=== PATIENT | female | born 1975 | race Caucasian/White ===

== ENCOUNTER 2018-05-03 11:45 | Inpatient (IN) ==
[2018-05-03] MEDS ORDERED: 0.9 % Sodium Chloride 1,000 ML IVC ONE (12:17)
[2018-05-03] MEDS ORDERED: Pantoprazole 40 MG VIAL IVP ONE (12:37)
[2018-05-03] MEDS ORDERED: Ketorolac 15 MG/ML VIAL IVP ONE (12:37)
[2018-05-03] MEDS ORDERED: *HR* LORazepam 2 MG/ML VIAL IVP ONE (12:37)
--- NOTE | 2018-05-03 12:51 | Emergency Department Note ---
Disposition Clinical Impression: Community acquired pneumonia Qualifiers: Laterality: unspecified laterality Qualified Code(s): J18.9 - Pneumonia, unspecified organism Diaphragmatic hernia Qualifiers: Obstruction and gangrene presence: without obstruction or gangrene Qualified Code(s): K44.9 - Diaphragmatic hernia without obstruction or gangrene Disposition: Admitted As Inpatient Condition: Fair Referrals: NONE,PCP [Non-Partnered Physician] - Time of Disposition: 17:00 Chest Pain HPI - General Chief Complaint: ED Chest Pain Stated Complaint: chest pain Time Seen by Provider: 05/03/18 11:54 Source: patient Limitations: no limitations Vital Signs Reviewed: Yes - History of Present Illness HPI Narrative: 43-year-old female with history of COPD and GERD here for abdominal pain, chest pain, and shortness of breath. Approximately 3 days ago she began having 8/10 pain in her bilateral lower abdomen and her epigastrium that is sharp and constant in nature. Yesterday the pain migrated to her chest and she tells me it has been constant, sharp, and severe 10/10. She denies radiation of the abdominal or chest pain. She took an ibuprofen for her pain yesterday which did not help significantly but has not tried any other interventions. She denies any nausea, vomiting, or diarrhea. Severity scale (1-10): 8 - Related Data Home Medications Medication Instructions Recorded Confirmed No Known Home Drugs 10/30/16 10/30/16 Allergies Allergy/AdvReac Type Severity Reaction Status Date / Time No Known Allergies Allergy Verified 05/03/18 15:46 Constitutional: Denies: fever, chills, weakness Cardiovascular: Reports: chest pain, dyspnea on exertion, orthopnea. Denies: palpitations, edema, syncope Respiratory: Reports: cough, sputum production (mild cough with sputum production) Gastrointestinal: Reports: abdominal pain, constipation. Denies: nausea, vomiting, diarrhea, hematemesis, melena, hematochezia Genitourinary: Denies: urgency, dysuria, frequency Musculoskeletal: Denies: back pain, neck pain Integumentary: Denies: rash Neurological: Denies: headache, weakness, numbness, paresthesias Endocrine: Denies: heat or cold intolerance, polydipsia, polyuria Hematological/Lymphatic: Denies: easy bleeding, easy bruising Allergic/Immunologic: Denies: facial swelling, urticaria Chest Pain PMH - Past Medical History Medical history: Reports: arthritis Surgical history: Reports: , cholecystectomy Psychiatric history: Reports: anxiety, depression - Social History Smoking Status: Current every day smoker Alcohol use: Reports: none Drug use: Reports: none Physical Exam - General Limitations: no limitations General appearance: alert, in no apparent distress - Head Head exam: atraumatic, normocephalic - ENT ENT exam: mucous membranes moist - Chest Chest inspection: Absent: tenderness - Respiratory Respiratory exam: Absent: respiratory distress, stridor, accessory muscle use - Expanded Respiratory Exam Location: wheezes: Left, Right, Upper, Lower, decreased breath sounds: Left, Right - Cardiovascular Cardiovascular exam: Present: normal rhythm, tachycardia (Will last carotid is a ) - Abdominal Exam Abdominal exam: Present: soft, guarding, hypoactive bowel sounds (w) Abdominal tenderness: Present: RUQ, RLQ, LUQ, LLQ, epigastrium - Extremities Exam Extremities exam: Present: normal inspection - Back Exam Back exam: Present: normal inspection, full ROM. Absent: tenderness - Neurological Exam Neurological exam: Present: alert, oriented X3 - Psychiatric Psychiatric exam: Present: normal affect, normal mood - Skin Skin exam: Present: warm, dry, intact Course Course Narrative: Patient seen and evaluated at bedside. She is in moderate distress from her abdominal pain and chest pain but stable. Heart rate is elevated, patient has decreased intake of fluids and solids for the past 2-3 days. - Reevaluation(s) Reevaluation #1: Ativan and Toradol administered however IV malfunctioned. Nursing unable to obtain IV access after 5 additional attempts. We will get midline IV access . Discussed this with the patient and she is okay with that so we can administer fluids for her tachycardia and dehydration as well as the Protonix Vital Signs Temperature 98.0 F 05/03/18 11:46 Pulse Rate 123 05/03/18 11:46 Respiratory Rate 18 05/03/18 11:46 Blood Pressure 126/90 05/03/18 11:46 O2 Sat by Pulse Oximetry 94 05/03/18 11:46 Temperature 97.4 F L 05/03/18 17:34 Pulse Rate 99 05/03/18 17:34 Respiratory Rate 18 05/03/18 17:34 Blood Pressure 106/71 05/03/18 17:34 O2 Sat by Pulse Oximetry 98 05/03/18 17:34 Oxygen Delivery Oxygen Delivery Nasal Cannula Chest Pain - [facility] Narrative Medical decision making narrative: By history patient is dehydrated and tachycardic here in the ED. We will give her a bolus of fluids and also some Protonix. We will give Ativan as patient appears anxious, and Toradol for her pain for starters. Given her chest pain we will initiate cardiac workup. Will also obtain CT abdomen to check for possible perforation, diverticulitis, bowel obstruction, pancreatitis . CT scan showed right basilar lung consolidation and bilateral centrilobular ground glass nodules bilaterally. Patient denies recent hospitalizations or recent pneumonia and we started her on treatment for community acquired pneumonia with Levaquin. Furthermore, CT scan showed colonic distention and a large amount of fat along with large bowel in the diaphragmatic defect. I spoke with Dr. Melendez surgeon who said he will see the patient as a design sales consultant. . Hospitalist called me back to let me know that surgeon reviewed the CT scan and recommended the patient be transferred to [facility] for further management - Lab Data Lab results reviewed: Yes I reviewed the patient's lab results. Result diagrams: 05/03/18 12:46 05/03/18 12:46 Lab Results 05/03/18 05/03/18 05/03/18 Range/Units 12:46 12:46 12:46 WBC 13.6 H (4.3-11.1) K/mcL RBC 5.27 H (3.82-4.97) M/mcL Hgb 13.3 (11.5-15.4) g/dL Hct 41.8 (35.3-44.9) % MCV 79.3 L (83.0-100.0) fL MCH 25.2 L (28.0-33.3) pg MCHC 31.8 (31.6-35.5) g/dL RDW 16.5 H (11.5-14.5) % Plt Count 280 (140-400) K/mcL MPV 10.9 (9.4-12.4) fL Immature Gran % 0.3 (0-4) % Seg Neutrophils % 76.8 % Lymphocytes % 14.0 % Monocytes % 8.7 % Eosinophils % 0.0 % Basophils % 0.2 % Neutrophils # 10.5 H (1.6-8.9) K/mcL Lymphocytes # 1.9 (0.6-4.6) K/mcL Monocytes # 1.2 (0.0-1.3) K/mcL Eosinophils # 0.0 (0.0-0.6) K/mcL Basophils # 0.0 (0.0-0.2) K/mcL PT 11.8 (9.4-12.1) Seconds INR 1.1 APTT 32.6 (26.0-36.0) Seconds Sodium 135 L (136-145) mEq/L Potassium 4.1 (3.5-5.1) mEq/L Chloride 100 (98-107) mEq/L Carbon Dioxide 29 (23-29) mEq/L BUN 11 (6-20) mg/dL Creatinine 0.44 L (0.60-1.20) mg/dL Est GFR ( Amer) > 60 (> 60) Est GFR (Non-Af Amer) > 60 (> 60) BUN/Creatinine Ratio 25 (6-26) Glucose 129 H (70-105) mg/dL Calculated Osmolality 281 (280-300) Lactic Acid (0.5-2.2) mmol/L Calcium 9.4 (8.6-10.3) mg/dL Total Bilirubin 0.6 (0.3-1.0) mg/dL Direct Bilirubin 0.1 (0.0-0.2) mg/dL Indirect Bilirubin 0.5 (0.0-1.2) mg/dL AST 7 L (13-39) Units/L ALT 4 L (7-52) Units/L Alkaline Phosphatase 63 (34-104) Units/L Troponin I < 0.03 (< 0.04) ng/mL Serum Total Protein 7.1 (6.4-8.9) g/dL Albumin 3.7 (3.5-5.7) g/dL Globulin 3.4 (2.4-3.5) g/dL Albumin/Globulin Ratio 1.1 (1.1-2.2) Lipase 6 L (11-82) Units/L 05/03/18 Range/Units 16:17 WBC (4.3-11.1) K/mcL RBC (3.82-4.97) M/mcL Hgb (11.5-15.4) g/dL Hct (35.3-44.9) % MCV (83.0-100.0) fL MCH (28.0-33.3) pg MCHC (31.6-35.5) g/dL RDW (11.5-14.5) % Plt Count (140-400) K/mcL MPV (9.4-12.4) fL Immature Gran % (0-4) % Seg Neutrophils % % Lymphocytes % % Monocytes % % Eosinophils % % Basophils % % Neutrophils # (1.6-8.9) K/mcL Lymphocytes # (0.6-4.6) K/mcL Monocytes # (0.0-1.3) K/mcL Eosinophils # (0.0-0.6) K/mcL Basophils # (0.0-0.2) K/mcL PT (9.4-12.1) Seconds INR APTT (26.0-36.0) Seconds Sodium (136-145) mEq/L Potassium (3.5-5.1) mEq/L Chloride (98-107) mEq/L Carbon Dioxide (23-29) mEq/L BUN (6-20) mg/dL Creatinine (0.60-1.20) mg/dL Est GFR ( Amer) (> 60) Est GFR (Non-Af Amer) (> 60) BUN/Creatinine Ratio (6-26) Glucose (70-105) mg/dL Calculated Osmolality (280-300) Lactic Acid 0.7 (0.5-2.2) mmol/L Calcium (8.6-10.3) mg/dL Total Bilirubin (0.3-1.0) mg/dL Direct Bilirubin (0.0-0.2) mg/dL Indirect Bilirubin (0.0-1.2) mg/dL AST (13-39) Units/L ALT (7-52) Units/L Alkaline Phosphatase (34-104) Units/L Troponin I (< 0.04) ng/mL Serum Total Protein (6.4-8.9) g/dL Albumin (3.5-5.7) g/dL Globulin (2.4-3.5) g/dL Albumin/Globulin Ratio (1.1-2.2) Lipase (11-82) Units/L - EKG Data EKG attestation: Yes I reviewed and interpreted this EKG. EKG results narrative: EKG reviewed: Sinus tachycardia. Rate = 120 bpm, OR interval 120 ms, QRS duration 75 ms, QT 301 ms, QTC 372, normal axes. No ST elevation or depression , no T-wave abnormalities Heart Score - Score History: Moderately Suspicious EKG: Normal Age: Less than 45 Risk Factors: 1-2 risk factors Troponin: Less than normal limit HEART Score Total: 2 Attestation Statement - Attestation Attestation: Patient was seen with resident physician. I reviewed the history, physical, assessment and plan, and agree with the findings. I also personally evaluated this patient and had [id number] time with this patient. 43-year-old female presents emergency Department with 3-4 day history of abdominal pain started in the lower and mid epigastric area as a dull ache area and now she says it comes up into her chest and she is having some chest pain. She said the pain is been continuous for about 3 days. It does not wax or wane. Worse when she lies back she says she feels very burning uncomfortable sensation is associated with shortness of breath as well. She has reflux but she does not take anything for it. She is a smoker but denies any cardiac history. Denies fevers chills. She has had nausea without vomiting. No diarrhea. Review of systems as above remained reviewed negative. Physical exam vital signs patient's initially tachycardic. Blood pressure stable. ENT is unremarkable. Heart regular rhythm and rate. Chest wall stable. Lungs clear without wheezing or rhonchi. Abdomen soft nontender. Extremities unremarkable. Neurologically intact. Skin no rashes. Psych anxious. Patient has had 3 days of continuous chest pain. Her EKG does not show any acute ischemic changes initial troponin is negative. Based on this and her lack of cardiac history, I think this is likely reflux that is causing esophageal irritation. She was treated symptomatically here including for Ativan because she is very anxious on arrival. Symptoms were improved. Other lab tests are largely unremarkable CT scan of the abdomen and pelvis was also obtained to rule out substantial abnormalities. X-ray revealed pneumonia. CT scan confirmed this and also was suggestive of a hiatal hernia with possible partial bowel obstruction. With these findings the patient was started on IV antibiotics and IV fluids. A midline IV was obtained. Patient did meet sepsis criteria however not septic shock criteria for severe sepsis criteria. She was feeling better. We did contact both the hospitalist service to arrange for admission and surgery to get them a formal consultation for the patient. Hemodynamically she remained stable while in the ED heart rate was improving. Agree with resident physician assessment and plan.
[2018-05-03 12:56] LABS: Basophils % 0.2 %; Hematocrit 41.8 % (35.3-44.9); Hemoglobin 13.3 g/dL (11.5-15.4); Immature Granulocytes % 0.3 % (0-4); Lymphocytes # 1.9 K/mcL (0.6-4.6); Mean Corpuscular HGB Conc 31.8 g/dL (31.6-35.5); Mean Corpuscular Hemoglobin 25.2 pg (28.0-33.3); Mean Corpuscular Volume 79.3 fL (83.0-100.0); Mean Platelet Volume 10.9 fL (9.4-12.4); Monocytes # 1.2 K/mcL (0.0-1.3); Monocytes % 8.7 %; Neutrophils # 10.5 K/mcL (1.6-8.9); Platelet Count 280 K/mcL (140-400); Red Blood Count 5.27 M/mcL (3.82-4.97); Red Cell Distribution Width 16.5 % (11.5-14.5); Segmented Neutrophils % 76.8 %
[2018-05-03 13:09] LABS: INR 1.1; Prothrombin Time 11.8 Seconds (9.4-12.1)
[2018-05-03 13:12] LABS: Activated Partial Thrombo Time 32.6 Seconds (26.0-36.0)
[2018-05-03 13:17] LABS: BUN/Creatinine Ratio 25 (6-26); Blood Urea Nitrogen 11 mg/dL (6-20); Calcium 9.4 mg/dL (8.6-10.3); Carbon Dioxide 29 mEq/L (23-29); Chloride 100 mEq/L (98-107); Glucose 129 mg/dL (70-105); Osmolality,Calculated 281 (280-300); Potassium 4.1 mEq/L (3.5-5.1); Sodium 135 mEq/L (136-145); Troponin I < 0.03 ng/mL (< 0.04); eGFR For African Americans > 60 (> 60); eGFR For Non-African Americans > 60 (> 60)
[2018-05-03 13:39] LABS: Alanine Aminotransferase 4 Units/L (7-52); Albumin 3.7 g/dL (3.5-5.7); Albumin/Globulin Ratio 1.1 (1.1-2.2); Alkaline Phosphatase 63 Units/L (34-104); Aspartate Amino Transferase 7 Units/L (13-39); Bilirubin,Direct 0.1 mg/dL (0.0-0.2); Bilirubin,Indirect 0.5 mg/dL (0.0-1.2); Bilirubin,Total 0.6 mg/dL (0.3-1.0); Globulin 3.4 g/dL (2.4-3.5); Lipase 6 Units/L (11-82); Total Protein 7.1 g/dL (6.4-8.9)
[2018-05-03] MEDS ORDERED: Levofloxacin 500 MG/100 ML 500 MG/100 ML BAG IVPB ONE (15:23)
[2018-05-03] MEDS ORDERED: *HR* Promethazine 25 MG/ML VIAL IVP PRN (16:02)
[2018-05-03] MEDS ORDERED: OXYCODONE Oral CONC 10 MG/0.5 ML ORAL.SYG SL PRN ×2 (16:02)
[2018-05-03] MEDS ORDERED: Naloxone 0.4 MG/ML INJ IVP PRN (16:02)
[2018-05-03] MEDS ORDERED: Ondansetron 4 MG/2 ML VIAL IVP PRN (16:02)
[2018-05-03] MEDS ORDERED: 0.9 % Sodium Chloride 1,000 ML IVC SCH (16:15)
--- NOTE | 2018-05-03 17:13 | General Surgery Consult Note ---
<Aureliano Schultz R - Last Filed: 05/03/18 17:05> Date of Encounter: 05/03/18 Time of Encounter: 17:05 Assessment and Plan (1) Abdominal pain Current Visit: Yes Status: Acute Diffuse tenderness on exam. Afebrile. Leukocytosis (13.6) CT (no oral contrast): large Morgagni diaphragmatic hernia, containing a large amount of fat and a segment of colon - unchanged scattered fluid and stranding within herniated fat. Distension of colon proximal to the diaphragmatic defect, possibly indicating a low grade partial obstruction. There is no significant small bowel dilation. Chronic right pleural effusion. Right basilar consolidation may represent atelectasis or pneumonia - hernia and presence of transverse colon also noted on CT from 2013 PLAN: NPO except ice chips Dulcolax suppository Supportive treatment - Pain and nausea control Qualifiers: Abdominal location: generalized Qualified Code(s): R10.84 - Generalized abdominal pain (2) Morgagni hernia Current Visit: Yes Status: Acute History of Present Illness Consult date: 05/03/18 Reason for consult: abdominal pain Requesting physician: Des Levin History of present illness: 43 year old female with PMH of emphysema presented to [facility] with lower abdominal pain, chest pain, and dyspnea. She states that her symptoms began 4 days ago when she started having bilateral band-like, constant, sharp lower abdominal pain. Today she began having chest pain, cough, and shortness of breath, that brought her into the emergency department. At times her abdominal pain is severe (10/10). She has not eaten or drank much for the past 3-4 days. Associated symptoms include worsening constipation and bloating. Normally she has a BM every 3-4 days, however she thinks it has been at least 5-6 days since her last bowel movement. She does feel like her abdomen is a little more distended than usual. Denies fevers, chills, nausea, vomiting, dysuria, or difficulty urinating. She does not remember passing any gas. PSH: Morgagni hernia repair at [facility] (2013), x4, and open cholecystectomy Past Med Surg Social Fam HX - Past Medical History Medical history: arthritis, COPD Psychiatric history: anxiety, depression - Past Surgical History Surgical History: , cholecystectomy Additional surgical history: Hernia repair (Morgagni) - Social History Smoking Status: Current every day smoker Smokeless Tobacco Status: No Alcohol use: none Drug use: none - Family History Mother Family Member Ethnicity: Non- Living Status: Hx Family Cardiac Disorders: No Hx Family Respiratory Disorders: No Hx Family Cancer: Yes (Pancreatic) Hx Family GI Disorders: No Hx Family Endocrine Disorder: No Hx Family Neuromuscular Disorders: No Hx Family Neurologic Disorders: No Hx Family HEENT Disorders: No Hx Family Autoimmune Disorders: No Father Family Member Ethnicity: Non- Living Status: Hx Family Cardiac Disorders: Yes (Heart attack, CABG) Hx Family Respiratory Disorders: Yes (Pneumonia) Hx Family Cancer: Yes (Colon) Hx Family GI Disorders: No Hx Family Endocrine Disorder: No Hx Family Neuromuscular Disorders: No Hx Family Neurologic Disorders: No Hx Family HEENT Disorders: No Hx Family Autoimmune Disorders: No Medications and Allergies No Known Home Drugs 10/30/16 [History] 3 Allergy/AdvReac Type Severity Reaction Status Date / Time No Known Allergies Allergy Verified 05/03/18 15:46 Review of Systems All systems PM: reviewed and no additional remarkable complaints except as stated All systems PM: The remainder of the systems were reviewed and are negative General Surgery Exam Initial Vital Signs Temp Pulse Resp BP Pulse Ox 98.0 F 123 18 126/90 94 05/03/18 11:46 05/03/18 11:46 05/03/18 11:46 05/03/18 11:46 05/03/18 11:46 - General physical appearance well developed, well nourished, moderate pain - Respiratory normal expansion, normal respiratory effort - Cardiovascular Cardiovascular exam: Present: RRR, no murmurs/rubs/gallops - Abdomen Abdomen general surgery: Present: bowel sounds present (hypoactive), soft, distended, tender, surgical scars (RUQ and midline inferior to umbilicus). Absent: guarding, rebound, rigid Abdominal Tenderness: Present: diffusely - Integumentary Integumentary general surgery: Present: warm and dry, no abnormal pigmentation - Neurologic Present: CN 2-12 grossly intact, normal coordination - Psychiatric Psychiatric general surgery: Present: A&Ox3, appropriate, speech is normal, memory intact Exam Initial Vital Signs Temp Pulse Resp BP Pulse Ox 98.0 F 123 18 126/90 94 05/03/18 11:46 05/03/18 11:46 05/03/18 11:46 05/03/18 11:46 05/03/18 11:46 Results - Labs 05/03/18 12:46 05/03/18 12:46 Abnormal lab results WBC 13.6 K/mcL (4.3-11.1) H 05/03/18 12:46 RBC 5.27 M/mcL (3.82-4.97) H 05/03/18 12:46 MCV 79.3 fL (83.0-100.0) L 05/03/18 12:46 MCH 25.2 pg (28.0-33.3) L 05/03/18 12:46 RDW 16.5 % (11.5-14.5) H 05/03/18 12:46 Neutrophils # 10.5 K/mcL (1.6-8.9) H 05/03/18 12:46 Sodium 135 mEq/L (136-145) L 05/03/18 12:46 Creatinine 0.44 mg/dL (0.60-1.20) L 05/03/18 12:46 Glucose 129 mg/dL (70-105) H 05/03/18 12:46 AST 7 Units/L (13-39) L 05/03/18 12:46 ALT 4 Units/L (7-52) L 05/03/18 12:46 Lipase 6 Units/L (11-82) L 05/03/18 12:46 All other labs normal. Consult Discharge Plan - Plan Referrals: NONE,PCP [Primary Care Provider] - <Av Melendez - Last Filed: 05/03/18 18:03> Date of Encounter: 05/03/18 Review of Systems All systems PM: The remainder of the systems were reviewed and are negative General Surgery Exam Initial Vital Signs Temp Pulse Resp BP Pulse Ox 98.0 F 123 18 126/90 94 05/03/18 11:46 05/03/18 11:46 05/03/18 11:46 05/03/18 11:46 05/03/18 11:46 Exam Initial Vital Signs Temp Pulse Resp BP Pulse Ox 98.0 F 123 18 126/90 94 05/03/18 11:46 05/03/18 11:46 05/03/18 11:46 05/03/18 11:46 05/03/18 11:46 Results - Labs 05/03/18 12:46 05/03/18 12:46 Abnormal lab results WBC 13.6 K/mcL (4.3-11.1) H 05/03/18 12:46 RBC 5.27 M/mcL (3.82-4.97) H 05/03/18 12:46 MCV 79.3 fL (83.0-100.0) L 05/03/18 12:46 MCH 25.2 pg (28.0-33.3) L 05/03/18 12:46 RDW 16.5 % (11.5-14.5) H 05/03/18 12:46 Neutrophils # 10.5 K/mcL (1.6-8.9) H 05/03/18 12:46 Sodium 135 mEq/L (136-145) L 05/03/18 12:46 Creatinine 0.44 mg/dL (0.60-1.20) L 05/03/18 12:46 Glucose 129 mg/dL (70-105) H 05/03/18 12:46 AST 7 Units/L (13-39) L 05/03/18 12:46 ALT 4 Units/L (7-52) L 05/03/18 12:46 Lipase 6 Units/L (11-82) L 05/03/18 12:46 All other labs normal. - Attending Attestation I examined this patient and my medical decision-making was reviewed with the Resident Physician. I agree with the documented findings, disposition and treatment plan as described except to the extent set forth below. Review the assessment and evaluation with the resident as mentioned above. The patient has had a previous history of similar symptoms back in 2012 and was evaluated here [facility] with a CT scan showing a large portion of her transverse colon at the level of the hepatic flexure and a diaphragmatic hernia defect (Morgangi hernia defect). She had not had any flatus or bowel movements for several days and was transferred to [facility] for a hernia repair. The patient states over the past 4 days she has had similar type of symptoms with lower abdominal pain symptoms and no bowel movements. She does admit that she normally has a bowel movement once every 2-3 days but is been about 4-5 days and her pain is been present for that amount of time. She denies any nausea or vomiting symptoms and does admit to some abdominal distention. On examination she is tender to 10 minute was some mild bowel sounds. The initial radiology read was that she had mild dilation of the colon proximal to the hernia defect but I think that this is pretty moderate distention with definite collapse of the bowel distally. The neck of hernia defect is slightly smaller than it was on previous CT scan 2013. I am concerned that her overall symptoms are related to this hernia defect and explained to the patient that if under conservative measures her symptoms do not resolve then she will need to be referred to [facility] for evaluation and possible repair since we do not perform this type of extensive congenital hiatal hernia repair at this institution. I have contacted the hospitalist to make them aware of my concerns as well.
[2018-05-03 17:35] VITALS: BP 106/71
--- NOTE | 2018-05-03 17:48 | Internal Med History&Physical ---
Date of Encounter: 05/03/18 Time of Encounter: 16:00 Internal Medicine - H&P: HPI Chief complaint: Abdominal pain, Nausea, Cough with expectoration Admitted From: Emergency Dept Plans for Post Hospital Care: Home History of present illness: Ms. Sanchez is a 43 year old female with known PMH of COPD, Chronic tobacco dependence, chronic diaphragmatic hernia pt with s/p C section x 4, cholecystectomy pt presented to ER with 4 days h/o lower abdominal pain asosicated with nausea. She also c/o loss of appetite and not eating / drinking well from last 4-5 days. She does have constipation. Denied passing gas, BM. She also c/o KELLEY and SOB. She does have cough with greenish expectoration. Her CXR showed RLL Pneumonia. Her CT of abd showed large morgagni diaphragmatic hernia, containing large amount of fat and a segment of colon. There is a distention of colon proximal to the diaphragmatic defect, indicating a low grade partial obstruction Past Med Surg Social Fam HX - Past Medical History Medical history: arthritis, COPD Psychiatric history: anxiety, depression - Past Surgical History Surgical History: , cholecystectomy Additional surgical history: Hernia repair (Morgagni) - Social History Smoking Status: Current every day smoker Smokeless Tobacco Status: No Alcohol use: none Drug use: none - Family History Mother Family Member Ethnicity: Non- Living Status: Hx Family Cardiac Disorders: No Hx Family Respiratory Disorders: No Hx Family Cancer: Yes (Pancreatic) Hx Family GI Disorders: No Hx Family Endocrine Disorder: No Hx Family Neuromuscular Disorders: No Hx Family Neurologic Disorders: No Hx Family HEENT Disorders: No Hx Family Autoimmune Disorders: No Father Family Member Ethnicity: Non- Living Status: Hx Family Cardiac Disorders: Yes (Heart attack, CABG) Hx Family Respiratory Disorders: Yes (Pneumonia) Hx Family Cancer: Yes (Colon) Hx Family GI Disorders: No Hx Family Endocrine Disorder: No Hx Family Neuromuscular Disorders: No Hx Family Neurologic Disorders: No Hx Family HEENT Disorders: No Hx Family Autoimmune Disorders: No Internal Medicine - H&P: Meds No Known Home Drugs 10/30/16 [History] 3 Allergy/AdvReac Type Severity Reaction Status Date / Time No Known Allergies Allergy Verified 05/03/18 15:46 All Systems PM: A 10-system review of systems was performed and is negative for pertinent findings except as documented above in the HPI. Review of systems: All systems reviewed everything is benign except the systems and symptoms I mentioned in HPI - Constitutional Vitals: Temp Pulse Resp BP Pulse Ox 97.4 F L 99 18 106/71 98 05/03/18 17:34 05/03/18 17:34 05/03/18 17:34 05/03/18 17:34 05/03/18 17:34 General appearance: Present: cooperative, mild distress, A&O X 3, answers questions appropriately - Head Head exam: Present: atraumatic, normal inspection - Neck Neck exam general surgery: Present: supple - Respiratory Respiratory exam: Present: decreased breath sounds, wheezes (mild). Absent: rales, respiratory distress, rhonchi - Cardiovascular Cardiovascular exam: Present: RRR, +S1, +S2. Absent: tachycardia - GI/Abdominal GI/Abdominal exam: Present: distended, hypoactive bowel sounds, soft, tenderness (lower abdomen). Absent: guarding, rebound, rigid - Extremities Exam Extremities exam: Absent: calf tenderness, pedal edema, tenderness - Back Exam Back exam: Absent: CVA tenderness (L), CVA tenderness (R) - Neurological Exam Neurological exam: Present: alert, oriented X3 - Psychiatric Psychiatric exam: Present: anxious - Skin Skin exam: Absent: rash Internal Med - H&P Results - Labs CBC & Chem 7: 05/03/18 12:46 05/03/18 12:46 - Assessment and plan (1) Large bowel obstruction Current Visit: Yes Status: Acute Assessment and plan: Admit the pt into Tele Reviewed her CT of Abd showing large bowel obstruction with Morgagni hernia Surgery consulted NPO for now Dr. Alatorre reviewed the pt's CT of Abd suggested, he won't do Morgagni hernia repair here, so suggested to send her to [facility] where she had past surgery done. Will contact [facility] for transfer Mean while continue symptomatic and supportive care (2) Abdominal pain Current Visit: Yes Status: Acute Qualifiers: Abdominal location: generalized Qualified Code(s): R10.84 - Generalized abdominal pain (3) Morgagni hernia Current Visit: Yes Status: Acute (4) Acute exacerbation of chronic obstructive airways disease Current Visit: No Status: Acute Assessment and plan: Duoneb No need of systemic steroids O2 and empirical abx (5) Community acquired pneumonia Current Visit: No Status: Acute Assessment and plan: Reviewed CXR showed RLL PNA mostly bacterial check Sputum cx, Gram staining, Strep PNA, Legionella and Resp viral panel Qualifiers: Laterality: right Lung location: lower lobe of lung Qualified Code(s): J18.1 - Lobar pneumonia, unspecified organism (6) Tobacco abuse Current Visit: No Status: Acute Assessment and plan: counseled to quit smoking - Time Spent With Patient Total time spent is greater than 50% in coordination of care (as documented) at patient's floor/unit and/or counseling patient:
[2018-05-03] MEDS: Bisacodyl 10 MG RECTAL SUPPOSITORY RC SCH ×2 (18:19→20:25)
--- NOTE | 2018-05-03 18:27 | Discharge Summary ---
Date of Encounter: 05/03/18 Time of Encounter: 18:20 - Discharge Diagnosis (1) Large bowel obstruction Priority: Primary Status: Acute (2) Abdominal pain Priority: Primary Status: Acute Qualifiers: Abdominal location: generalized Qualified Code(s): R10.84 - Generalized abdominal pain (3) Morgagni hernia Priority: Secondary Status: Acute (4) Acute exacerbation of chronic obstructive airways disease Priority: Secondary Status: Acute (5) Community acquired pneumonia Priority: Secondary Status: Acute Qualifiers: Laterality: right Lung location: lower lobe of lung Qualified Code(s): J18.1 - Lobar pneumonia, unspecified organism (6) Tobacco abuse Priority: Secondary Status: Acute Hospital course: Ms. Sanchez is a 43 year old female with known PMH of COPD, Chronic tobacco dependence, chronic diaphragmatic hernia pt with s/p C section x 4, cholecystectomy pt presented to ER with 4 days h/o lower abdominal pain asosicated with nausea. She also c/o loss of appetite and not eating / drinking well from last 4-5 days. She does have constipation. Denied passing gas, BM. She also c/o KELLEY and SOB. She does have cough with greenish expectoration. Her CXR showed RLL Pneumonia. Her CT of abd showed large morgagni diaphragmatic hernia, containing large amount of fat and a segment of colon. There is a distention of colon proximal to the diaphragmatic defect, indicating a low grade partial obstruction Pt was evaluated by our surgeon Dr. Melendez who suggested to transfer the pt to [facility] for further care. Talked to [facility] transfer center and surgeon Dr. Pace who accepted the pt for further care. So will d/ c her to [facility] today. - Time Spent with Patient Total time spent providing and/or coordinating discharge services: - Discharge Medications Home Medications: No Known Home Drugs 10/30/16 [History] Allergies/Adverse Reactions: 3 Allergy/AdvReac Type Severity Reaction Status Date / Time No Known Allergies Allergy Verified 05/03/18 15:46 Date of admission: 05/03/18 16:58 Primary care physician: PCP NONE Consults: 05/03/18 17:03 Consult to Surgery [CONS] Routine Consulting Provider: [facility] Reason for Consult: partial bowell obstruction Time Notified: 16:00 Call Completed: Yes - Constitutional Vitals: Temp Pulse Resp BP Pulse Ox 97.4 F L 99 18 106/71 98 05/03/18 17:34 05/03/18 17:34 05/03/18 17:34 05/03/18 17:34 05/03/18 17:34 General appearance: Present: cooperative, mild distress, A&O X 3, answers questions appropriately - Patient Status Disposition: Transfer Other Condition: Good - Discharge Instructions Follow Up With: NONE,PCP [Primary Care Provider] -
[2018-05-03] MEDS ORDERED: Ipratropium/Albuterol Neb 3 ML IH SCH (20:00)
[2018-05-04] MEDS ORDERED: *HR* Enoxaparin 40 MG/0.4 ML SYRINGE SQ SCH (06:00)
[2018-05-04] MEDS ORDERED: Levofloxacin 750 MG/150 ML 750 MG/150 ML BAG IVPB SCH (09:00)
--- NOTE | 2018-05-04 09:57 | Electrocardiograph Report ---
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
== END 2018-05-03 22:20 | disposition other institution (70) | DRG 247 ==
LOC: EMEROO 11:45 → 3ANU 16:58
PROVIDERS: ADMIT Family Medicine; ATTEND Family Medicine

== ENCOUNTER 2020-07-30 04:44 | Observation (INO) ==
[2020-07-30] MEDS ORDERED: Ipratropium/Albuterol Neb 3 ML IH ONE (04:56)
[2020-07-30] MEDS ORDERED: methylPREDNISolone 125 MG/2 ML VIAL IVP ONE (04:56)
[2020-07-30 06:53] LABS: Basophils % 0.1 %; Hemoglobin 13.7 g/dL (11.5-15.4); Immature Granulocytes % 0.4 % (0-4); Lymphocytes # 1.3 K/mcL (0.6-4.6); Lymphocytes % 9.3 %; Mean Corpuscular HGB Conc 31.1 g/dL (31.6-35.5); Mean Corpuscular Hemoglobin 28.2 pg (28.0-33.3); Mean Corpuscular Volume 90.7 fL (83.0-100.0); Mean Platelet Volume 11.7 fL (9.4-12.4); Monocytes # 0.8 K/mcL (0.0-1.3); Monocytes % 5.9 %; Neutrophils # 11.7 K/mcL (1.6-8.9); Platelet Count 219 K/mcL (140-400); Red Blood Count 4.85 M/mcL (3.82-4.97); Red Cell Distribution Width 14.5 % (11.5-14.5); Segmented Neutrophils % 84.3 %; White Blood Count 13.8 K/mcL (4.3-11.1)
[2020-07-30 07:04] LABS: BUN/Creatinine Ratio 13 (6-26); Blood Urea Nitrogen 8 mg/dL (6-20); Calcium 8.6 mg/dL (8.6-10.3); Carbon Dioxide 31 mEq/L (23-29); Chloride 101 mEq/L (98-107); Glucose 155 mg/dL (70-105); Osmolality,Calculated 287 (280-300); Sodium 138 mEq/L (136-145); eGFR For African Americans > 60 (> 60); eGFR For Non-African Americans > 60 (> 60)
[2020-07-30 07:08] LABS: Troponin I 0.18 ng/mL (< 0.04)
[2020-07-30 07:08] LABS: Adenovirus Not Detected (Not Detect); Bordetella Pertussis Not Detected (Not Detect); Chlamydophila pneumoniae Not Detected (Not Detect); Coronavirus 229E Not Detected (Not Detect); Coronavirus HKU1 Not Detected (Not Detect); Coronavirus NL63 Not Detected (Not Detect); Coronavirus OC43 Not Detected (Not Detect); Human Metapneumovirus Not Detected (Not Detect); Human Rhinovirus/Enterovirus Not Detected (Not Detect); Influenza A Subtype 2009 H1 Not Detected (Not Detect); Influenza B Not Detected (Not Detect); Mycoplasma pneumoniae Not Detected (Not Detect); Parainfluenza Virus 1 Not Detected (Not Detect); Parainfluenza Virus 2 Not Detected (Not Detect); Parainfluenza Virus 3 Not Detected (Not Detect); Parainfluenza Virus 4 Not Detected (Not Detect); Respiratory Syncytial Virus Not Detected (Not Detect); SARS-CoV-2 Not Detected (Not Detect)
[2020-07-30] MEDS ORDERED: Aspirin 325 MG TABLET PO ONE (07:15)
[2020-07-30] MEDS ORDERED: Potassium Chloride Elixir 20 MEQ/15 ML UDC PO ONE (07:15)
[2020-07-30] MEDS ORDERED: Isovue-370 500 ML BOTTLE IVP ONE (07:20)
[2020-07-30] MEDS ORDERED: Azithromycin 500 MG in D5% in Water 250 ML IVPB ONE (09:03)
[2020-07-30] MEDS ORDERED: cefTRIAXone 1,000 MG in Water for inj. (sterile) 10 ML IVP ONE (09:22)
[2020-07-30] MEDS ORDERED: Naloxone 0.4 MG/ML INJ IVP PRN (10:19)
[2020-07-30] MEDS ORDERED: Albuterol 2.5 MG/3 ML NEBULIZER IH PRN (11:47)
[2020-07-30] MEDS ORDERED: *HR* Heparin 5,000 UNIT/ML VIAL IVP PRN ×2 (14:28)
[2020-07-30] MEDS ORDERED: *HR* Heparin 5,000 UNIT/ML VIAL IVP ONE (14:28)
[2020-07-30] MEDS ORDERED: Perflutren Lipid Microsphere 1.3 ML in 0.9 % Sodium Chloride 8.7 ML IVP PRN (14:29)
[2020-07-30] MEDS ORDERED: Heparin 25,000UNIT/250ML 1/2NS 25,000 UNIT/250 ML IV.SOLN IVC SCH (14:30)
[2020-07-30] MEDS: Ipratropium/Albuterol Neb 3 ML IH SCH ×4 (15:51→23:59)
[2020-07-31 03:34] LABS: Basophils % 0.1 %; Hematocrit 38.8 % (35.3-44.9); Hemoglobin 12.5 g/dL (11.5-15.4); Immature Granulocytes % 0.4 % (0-4); Lymphocytes # 1.4 K/mcL (0.6-4.6); Lymphocytes % 11.1 %; Mean Corpuscular HGB Conc 32.2 g/dL (31.6-35.5); Mean Corpuscular Hemoglobin 29.1 pg (28.0-33.3); Mean Corpuscular Volume 90.4 fL (83.0-100.0); Monocytes # 0.6 K/mcL (0.0-1.3); Monocytes % 5.2 %; Neutrophils # 10.2 K/mcL (1.6-8.9); Platelet Count 181 K/mcL (140-400); Red Blood Count 4.29 M/mcL (3.82-4.97); Red Cell Distribution Width 14.6 % (11.5-14.5); Segmented Neutrophils % 83.2 %; White Blood Count 12.2 K/mcL (4.3-11.1)
[2020-07-31] MEDS: Ipratropium/Albuterol Neb 3 ML IH SCH ×3 (03:36→11:19)
[2020-07-31 03:59] LABS: BUN/Creatinine Ratio 14 (6-26); Blood Urea Nitrogen 6 mg/dL (6-20); Calcium 8.6 mg/dL (8.6-10.3); Carbon Dioxide 30 mEq/L (23-29); Chloride 103 mEq/L (98-107); Chol/HDL Ratio 5.8 (0-4.9); Cholesterol 173 mg/dL (< 200); Glucose 122 mg/dL (70-105); HDL Cholesterol 30 mg/dL (40-59); LDL Cholesterol,Calculated 119 mg/dL (< 100); Osmolality,Calculated 283 (280-300); Potassium 3.6 mEq/L (3.5-5.1); Sodium 137 mEq/L (136-145); Triglycerides 120 mg/dL (< 150); Troponin I 0.33 ng/mL (< 0.04); eGFR For African Americans > 60 (> 60); eGFR For Non-African Americans > 60 (> 60)
[2020-07-31 08:03] VITALS: BP 126/78
[2020-07-31 08:59] LABS: Estimated Average Glucose 117 mg/dl
[2020-07-31] MEDS ORDERED: Azithromycin 250 MG TABLET PO SCH (09:00)
[2020-07-31] MEDS ORDERED: cefTRIAXone 1,000 MG in Water for inj. (sterile) 10 ML IVP SCH (09:00)
[2020-07-31] MEDS ORDERED: Methadone Oral Concentrate 50 MG/5 ML UDC PO SCH (09:15)
[2020-07-31] MEDS ORDERED: Aspirin 81 MG TAB.CHEW PO SCH (09:15)
[2020-07-31] MEDS ORDERED: carvediloL 6.25 MG TABLET PO SCH (11:30)
== END 2020-07-31 11:48 | disposition left against medical advice (07) ==
LOC: 3BNU 04:44 → EMEROOARM 04:44 → SUATTDRO 09:32 → 3BNU 10:33
PROVIDERS: ADMIT Internal Medicine; ATTEND Internal Medicine

== ENCOUNTER 2021-03-23 22:46 | Inpatient (IN) ==
[~2021-03-23 22:46] MED LIST: *HR* Midazolam HCl 5 MG/5 ML VIAL IVP ONE
[2021-03-23] MEDS ORDERED: 0.9 % Sodium Chloride 1,000 ML IVC ONE (23:02)
[2021-03-23] MEDS ORDERED: Isovue-370 500 ML BOTTLE IVP ONE (23:04)
[2021-03-23 23:08] LABS: ABG Base Excess 0 mEq/L (-2 to 3); ABG HCO3 28 mEq/L (21-27); ABG Oxygen Saturation 99 % (95-98); ABG PCO2 58 mmHg (35-45); ABG PH 7.29 pH Units (7.32-7.45); ABG PO2 151 mmHg (85-104); ABG TCO2 29 mEq/L (20-26); Blood Gas VT 450 cc
[2021-03-23 23:28] LABS: Alanine Aminotransferase 16 Units/L (7-52); Albumin 3.3 g/dL (3.5-5.7); Albumin/Globulin Ratio 1.3 (1.1-2.2); Alkaline Phosphatase 63 Units/L (34-104); Aspartate Amino Transferase 19 Units/L (13-39); BUN/Creatinine Ratio 6 (6-26); Bilirubin,Direct 0.1 mg/dL (0.0-0.2); Bilirubin,Indirect 0.5 mg/dL (0.0-1.0); Bilirubin,Total 0.6 mg/dL (0.3-1.0); Blood Urea Nitrogen 5 mg/dL (6-20); Carbon Dioxide 28 mEq/L (23-29); Chloride 97 mEq/L (98-107); Creatine Kinase 88 Units/L (30-223); Ethanol < 10 mg/dL (Less than 10); Globulin 2.6 g/dL (2.4-3.5); Glucose 217 mg/dL (70-105); Osmolality,Calculated 294 (280-300); Potassium 3.5 mEq/L (3.5-5.1); Sodium 140 mEq/L (136-145); Total Protein 5.9 g/dL (6.4-8.9); Troponin I < 0.03 ng/mL (< 0.04); eGFR For African Americans > 60 (> 60); eGFR For Non-African Americans > 60 (> 60)
[2021-03-23 23:29] LABS: Nucleated Red Blood Cells 0.2 /100 WBC (0); Segmented Neutrophils % 62.9 %
[2021-03-23 23:30] LABS: Basophils % 0.2 %; Eosinophils % 0.1 %; Hematocrit 35.5 % (35.3-44.9); Hemoglobin 10.5 g/dL (11.5-15.4); Immature Granulocytes % 1.4 % (0-4); Lymphocytes # 2.8 K/mcL (0.6-4.6); Lymphocytes % 28.6 %; Mean Corpuscular HGB Conc 29.6 g/dL (31.6-35.5); Mean Corpuscular Hemoglobin 24.5 pg (28.0-33.3); Mean Corpuscular Volume 82.8 fL (83.0-100.0); Mean Platelet Volume 11.8 fL (9.4-12.4); Monocytes # 0.7 K/mcL (0.0-1.3); Monocytes % 6.8 %; Neutrophils # 6.1 K/mcL (1.6-8.9); Platelet Count 187 K/mcL (140-400); Red Blood Count 4.29 M/mcL (3.82-4.97); White Blood Count 9.7 K/mcL (4.3-11.1)
[2021-03-23] MEDS: FentaNYL (PF) 1,000 MCG/100 ML IV.SOLN IVC SCH (23:39)
[2021-03-23 23:41] LABS: Thyroid Stimulating Hormone 19.339 mcIU/mL (0.340-5.600)
[2021-03-23] MEDS ORDERED: *HR* EPINEPHrine 100 MCG/10 ML SYRINGE IVP ONE (23:59)
[2021-03-24] MEDS ORDERED: Piperacillin/Tazobactam 3.375 GM in 0.9 % Sodium Chloride Mini Bag 100 ML IVPB ONE (00:04)
[2021-03-24] MEDS ORDERED: Vancomycin 1,500 MG/265 ML IV.SOLN IVPB ONE (01:00)
[2021-03-24 01:14] LABS: INR 1.1; Prothrombin Time 12.2 Seconds (9.4-12.1)
[2021-03-24 01:59] LABS: Bilirubin,Urine Negative (Negative); Blood,Urine Trace (Negative); Clarity,Urine Clear (Clear); Color,Urine Colorless (Yellow); Glucose,Urine (UA) 200 mg/dL (Normal); Ketones,Urine Negative (Negative); Leukocyte Esterase,Urine Negative (Negative); Mucus,Urine Few per lpf (None-Few); Nitrite,Urine Negative (Negative); PH,Urine 7.5 pH Units (5.0-8.0); Protein,Urine 50 mg/dL (Neg-Trace); RBC,Urine 0-3 per hpf (0-3); Specific Gravity,Urine > 1.030 (1.010-1.025); Squamous Epithelial Cell,Urine Few per hpf (None-Few); Urobilinogen,Urine Normal (Normal); WBC,Urine 0-3 per hpf (0-3)
[2021-03-24 02:27] LABS: Amphetamine Screen,Urine Negative ng/mL (Cutoff=1000); Barbiturate Screen,Urine Negative ng/mL (Cutoff=200); Benzodiazepines Screen,Urine Positive ng/mL (Cutoff=200); Cannabinoid Screen,Urine Positive ng/mL (Cutoff = 50); Cocaine Screen,Urine Negative ng/mL (Cutoff= 300); Opiate Screen,Urine Negative ng/mL (Cutoff=300); Phencyclidine Screen,Urine Negative ng/mL (Cutoff=25)
[2021-03-24] MEDS ORDERED: *HR* Heparin 5,000 UNIT/ML VIAL IVP PRN ×2 (02:58)
[2021-03-24] MEDS ORDERED: *HR* Heparin 5,000 UNIT/ML VIAL IVP ONE (02:58)
[2021-03-24] MEDS ORDERED: Aspirin 325 MG TABLET PO ONE (03:02)
[2021-03-24] MEDS: Heparin 25,000UNIT/250ML 1/2NS 25,000 UNIT/250 ML IV.SOLN IVC SCH ×2 (03:18→23:34)
[2021-03-24] MEDS ORDERED: Naloxone 0.4 MG/ML INJ IVP PRN (03:35)
[2021-03-24] MEDS ORDERED: Artificial Tears SOLN 15 ML BOTTLE BOTH EYES PRN (03:38)
[2021-03-24] MEDS ORDERED: D5% in Water 1,000 ML IVC PRN (03:42)
[2021-03-24] MEDS ORDERED: *HR* Dextrose 50 % in Water (Vial) 50 ML VIAL IVP PRN (03:42)
[2021-03-24] MEDS ORDERED: Dextrose Gel 15 GM/37.5 ML TUBE PO PRN ×2 (03:42)
[2021-03-24] MEDS ORDERED: Perflutren Lipid Microsphere 1.3 ML in 0.9 % Sodium Chloride 8.7 ML IVP PRN (03:45)
[2021-03-24 03:47] LABS: Phosphorous 2.9 mg/dL (2.7-4.5)
[2021-03-24] MEDS: Ipratropium/Albuterol Neb 3 ML IH SCH ×6 (04:04→23:20)
[2021-03-24] MEDS: Midazolam HCl 50 MG/100 ML IV.SOLN IVC SCH ×2 (04:19→23:33)
[2021-03-24 04:50] LABS: ABG Base Excess 6 mEq/L (-2 to 3); ABG HCO3 31 mEq/L (21-27); ABG Oxygen Saturation 86 % (95-98); ABG PCO2 47 mmHg (35-45); ABG PH 7.44 pH Units (7.32-7.45); ABG PO2 51 mmHg (85-104); ABG TCO2 33 mEq/L (20-26); Blood Gas VT 420 cc
[2021-03-24] MEDS: Insulin LISPRO 300 UNITS/3 ML VIAL SUBQ SCH ×6 (04:53→23:33)
[2021-03-24] MEDS: Artificial Tears SOLN 15 ML BOTTLE BOTH EYES SCH ×6 (04:53→23:33)
[2021-03-24 05:12] LABS: VBG Ionized Calcium 0.97 mmol/L (1.15-1.35)
[2021-03-24] MEDS: Calcium Gluconate 1gm/50mL 1 GM/50 ML BAG IVPB PRN (05:17)
[2021-03-24 05:20] LABS: Basophils % 0.2 %; Hematocrit 36.5 % (35.3-44.9); Hemoglobin 10.9 g/dL (11.5-15.4); Immature Granulocytes % 0.3 % (0-4); Lymphocytes # 1.5 K/mcL (0.6-4.6); Lymphocytes % 12.8 %; Mean Corpuscular HGB Conc 29.9 g/dL (31.6-35.5); Mean Corpuscular Hemoglobin 24.3 pg (28.0-33.3); Mean Corpuscular Volume 81.5 fL (83.0-100.0); Mean Platelet Volume 11.9 fL (9.4-12.4); Monocytes # 0.5 K/mcL (0.0-1.3); Monocytes % 4.5 %; Neutrophils # 9.7 K/mcL (1.6-8.9); Platelet Count 213 K/mcL (140-400); Red Blood Count 4.48 M/mcL (3.82-4.97); Segmented Neutrophils % 82.2 %; White Blood Count 11.7 K/mcL (4.3-11.1)
[2021-03-24 05:39] LABS: Alanine Aminotransferase 16 Units/L (7-52); Albumin 3.4 g/dL (3.5-5.7); Albumin/Globulin Ratio 1.4 (1.1-2.2); Alkaline Phosphatase 65 Units/L (34-104); Aspartate Amino Transferase 21 Units/L (13-39); BUN/Creatinine Ratio 11 (6-26); Bilirubin,Total 1.2 mg/dL (0.3-1.0); Blood Urea Nitrogen 8 mg/dL (6-20); Calcium 7.9 mg/dL (8.6-10.3); Carbon Dioxide 33 mEq/L (23-29); Chloride 98 mEq/L (98-107); Globulin 2.5 g/dL (2.4-3.5); Glucose 169 mg/dL (70-105); Osmolality,Calculated 288 (280-300); Potassium 3.2 mEq/L (3.5-5.1); Sodium 138 mEq/L (136-145); Total Protein 5.9 g/dL (6.4-8.9); Troponin I < 0.03 ng/mL (< 0.04); eGFR For African Americans > 60 (> 60); eGFR For Non-African Americans > 60 (> 60)
[2021-03-24] MEDS ORDERED: Piperacillin/Tazobactam 3.375 GM in 0.9 % Sodium Chloride Mini Bag 100 ML IVPB SCH (08:00)
[2021-03-24] MEDS: Chlorhexidine Rinse 15 ML MOUTHWASH MM SCH ×2 (08:06→20:34)
[2021-03-24] MEDS: Pantoprazole 40 MG VIAL IVP SCH (08:07)
[2021-03-24] MEDS: Aspirin Enteric Coated 81 MG Tablet PO SCH (08:07)
[2021-03-24] MEDS ORDERED: *HR* Rocuronium Bromide 50 MG/5 ML VIAL IVP ONE (09:08)
[2021-03-24] MEDS ORDERED: *HR* Etomidate 20 MG/10 ML AMPUL IVP ONE (09:08)
[2021-03-24] MEDS ORDERED: Ringers Solution, Lactated 1,000 ML IVC SCH ×2 (09:30→18:30)
[2021-03-24] MEDS: FentaNYL (PF) 1,000 MCG/100 ML IV.SOLN IVC SCH ×2 (10:05→19:50)
[2021-03-24] MEDS: MethylPREDNISolone 40 MG/ML VIAL IVP SCH ×2 (10:52→18:51)
[2021-03-24 17:43] LABS: Troponin I < 0.03 ng/mL (< 0.04)
[2021-03-24] MEDS: Dexmedetomidine HCl 400 MCG/100 ML MLS IVC SCH (19:48)
[2021-03-25] MEDS: MethylPREDNISolone 40 MG/ML VIAL IVP SCH ×3 (01:25→18:32)
[2021-03-25] MEDS: FentaNYL (PF) 1,000 MCG/100 ML IV.SOLN IVC SCH (01:26)
[2021-03-25] MEDS: Dexmedetomidine HCl 400 MCG/100 ML MLS IVC SCH ×3 (03:19→23:37)
[2021-03-25] MEDS: Artificial Tears SOLN 15 ML BOTTLE BOTH EYES SCH ×6 (03:19→23:11)
[2021-03-25 03:22] LABS: Hematocrit 30.6 % (35.3-44.9); Hemoglobin 9.3 g/dL (11.5-15.4); Immature Granulocytes % 0.4 % (0-4); Lymphocytes # 0.5 K/mcL (0.6-4.6); Lymphocytes % 3.8 %; Mean Corpuscular HGB Conc 30.4 g/dL (31.6-35.5); Mean Corpuscular Hemoglobin 23.8 pg (28.0-33.3); Mean Corpuscular Volume 78.5 fL (83.0-100.0); Mean Platelet Volume 11.9 fL (9.4-12.4); Monocytes # 0.2 K/mcL (0.0-1.3); Monocytes % 1.7 %; Neutrophils # 13.4 K/mcL (1.6-8.9); Platelet Count 175 K/mcL (140-400); Red Cell Distribution Width 16.1 % (11.5-14.5); Segmented Neutrophils % 94.1 %; White Blood Count 14.2 K/mcL (4.3-11.1)
[2021-03-25] MEDS: Ipratropium/Albuterol Neb 3 ML IH SCH ×6 (03:40→23:37)
[2021-03-25 03:42] LABS: Alanine Aminotransferase 14 Units/L (7-52); Albumin 2.9 g/dL (3.5-5.7); Albumin/Globulin Ratio 1.2 (1.1-2.2); Alkaline Phosphatase 41 Units/L (34-104); Aspartate Amino Transferase 24 Units/L (13-39); BUN/Creatinine Ratio 19 (6-26); Bilirubin,Direct 0.3 mg/dL (0.0-0.2); Bilirubin,Indirect 0.5 mg/dL (0.0-1.0); Bilirubin,Total 0.8 mg/dL (0.3-1.0); Blood Urea Nitrogen 13 mg/dL (6-20); Calcium 7.3 mg/dL (8.6-10.3); Carbon Dioxide 27 mEq/L (23-29); Chloride 98 mEq/L (98-107); Globulin 2.4 g/dL (2.4-3.5); Glucose 137 mg/dL (70-105); Magnesium 1.6 mg/dL (1.6-2.6); Osmolality,Calculated 282 (280-300); Phosphorous 3.4 mg/dL (2.7-4.5); Potassium 3.4 mEq/L (3.5-5.1); Sodium 135 mEq/L (136-145); Total Protein 5.3 g/dL (6.4-8.9); eGFR For African Americans > 60 (> 60); eGFR For Non-African Americans > 60 (> 60)
[2021-03-25] MEDS: Insulin LISPRO 300 UNITS/3 ML VIAL SUBQ SCH ×6 (03:47→23:14)
[2021-03-25 03:54] LABS: Thyroid Stimulating Hormone 0.846 mcIU/mL (0.340-5.600)
[2021-03-25 04:45] LABS: ABG Base Excess 4 mEq/L (-2 to 3); ABG HCO3 31 mEq/L (21-27); ABG Oxygen Saturation 91 % (95-98); ABG PCO2 54 mmHg (35-45); ABG PH 7.36 pH Units (7.32-7.45); ABG PO2 64 mmHg (85-104); ABG TCO2 32 mEq/L (20-26); Blood Gas Modality ASSIST CONTROL; Blood Gas VT 420 cc
[2021-03-25] MEDS ORDERED: Isovue-370 500 ML BOTTLE IVP ONE (07:22)
[2021-03-25] MEDS: Pantoprazole 40 MG VIAL IVP SCH (09:03)
[2021-03-25] MEDS: Chlorhexidine Rinse 15 ML MOUTHWASH MM SCH ×2 (09:03→20:16)
[2021-03-25] MEDS: cefTRIAXone 1,000 MG in Water for inj. (sterile) 10 ML IVP SCH (09:03)
[2021-03-25] MEDS: Aspirin Enteric Coated 81 MG Tablet PO SCH (09:03)
[2021-03-25] MEDS: FentaNYL (PF) 2,500 MCG/50 ML IV.SOLN IVC SCH ×2 (09:15→19:45)
[2021-03-25] MEDS: Heparin 25,000UNIT/250ML 1/2NS 25,000 UNIT/250 ML IV.SOLN IVC SCH (09:38)
[2021-03-25] MEDS: Docusate Oral Soln 100 MG/10 ML UDC GTUBE SCH (20:16)
[2021-03-25] MEDS: Midazolam HCl 50 MG/100 ML IV.SOLN IVC SCH (23:14)
[2021-03-26] MEDS: MethylPREDNISolone 40 MG/ML VIAL IVP SCH ×3 (01:32→17:42)
[2021-03-26 03:18] LABS: Hematocrit 29.4 % (35.3-44.9); Hemoglobin 9.1 g/dL (11.5-15.4); Immature Granulocytes % 0.4 % (0-4); Lymphocytes # 0.6 K/mcL (0.6-4.6); Lymphocytes % 4.8 %; Mean Corpuscular Hemoglobin 24.2 pg (28.0-33.3); Mean Corpuscular Volume 78.2 fL (83.0-100.0); Mean Platelet Volume 12.1 fL (9.4-12.4); Monocytes # 0.5 K/mcL (0.0-1.3); Neutrophils # 11.1 K/mcL (1.6-8.9); Platelet Count 166 K/mcL (140-400); Red Blood Count 3.76 M/mcL (3.82-4.97); Red Cell Distribution Width 16.2 % (11.5-14.5); Segmented Neutrophils % 90.8 %; White Blood Count 12.2 K/mcL (4.3-11.1)
[2021-03-26] MEDS: Artificial Tears SOLN 15 ML BOTTLE BOTH EYES SCH ×6 (03:18→23:52)
[2021-03-26 03:37] LABS: BUN/Creatinine Ratio 31 (6-26); Blood Urea Nitrogen 14 mg/dL (6-20); Calcium 7.6 mg/dL (8.6-10.3); Carbon Dioxide 31 mEq/L (23-29); Chloride 97 mEq/L (98-107); Glucose 146 mg/dL (70-105); Magnesium 2.3 mg/dL (1.6-2.6); Osmolality,Calculated 277 (280-300); Phosphorous 2.1 mg/dL (2.7-4.5); Potassium 3.9 mEq/L (3.5-5.1); Sodium 132 mEq/L (136-145); eGFR For African Americans > 60 (> 60); eGFR For Non-African Americans > 60 (> 60)
[2021-03-26 03:39] LABS: VBG Ionized Calcium 1.04 mmol/L (1.15-1.35)
[2021-03-26] MEDS: Insulin LISPRO 300 UNITS/3 ML VIAL SUBQ SCH ×6 (03:43→23:52)
[2021-03-26] MEDS: Ipratropium/Albuterol Neb 3 ML IH SCH ×6 (03:45→23:32)
[2021-03-26] MEDS: Calcium Gluconate 1gm/50mL 1 GM/50 ML BAG IVPB PRN (03:49)
[2021-03-26] MEDS: Potassium Phosphate 44 MEQ in 0.9 % Sodium Chloride 250 ML IVPB PRN (04:20)
[2021-03-26 04:58] LABS: ABG Base Excess 5 mEq/L (-2 to 3); ABG HCO3 30 mEq/L (21-27); ABG Oxygen Saturation 92 % (95-98); ABG PCO2 46 mmHg (35-45); ABG PH 7.43 pH Units (7.32-7.45); ABG PO2 62 mmHg (85-104); ABG TCO2 32 mEq/L (20-26); Blood Gas Modality AF; Blood Gas VT 420 cc
[2021-03-26] MEDS: Dexmedetomidine HCl 400 MCG/100 ML MLS IVC SCH ×3 (06:00→19:51)
[2021-03-26] MEDS: Docusate Oral Soln 100 MG/10 ML UDC GTUBE SCH ×2 (08:31→19:51)
[2021-03-26] MEDS: Chlorhexidine Rinse 15 ML MOUTHWASH MM SCH ×2 (08:31→19:50)
[2021-03-26] MEDS: Pantoprazole 40 MG VIAL IVP SCH (08:32)
[2021-03-26] MEDS: cefTRIAXone 1,000 MG in Water for inj. (sterile) 10 ML IVP SCH (08:32)
[2021-03-26] MEDS: Aspirin 81 MG TAB.CHEW PO SCH (08:43)
[2021-03-26] MEDS: Heparin 25,000UNIT/250ML 1/2NS 25,000 UNIT/250 ML IV.SOLN IVC SCH (12:36)
[2021-03-27] MEDS: Dexmedetomidine HCl 400 MCG/100 ML MLS IVC SCH ×3 (02:12→16:15)
[2021-03-27] MEDS: Ipratropium/Albuterol Neb 3 ML IH SCH ×6 (03:45→23:21)
[2021-03-27] MEDS: Insulin LISPRO 300 UNITS/3 ML VIAL SUBQ SCH ×5 (04:17→20:07)
[2021-03-27] MEDS: Artificial Tears SOLN 15 ML BOTTLE BOTH EYES SCH ×5 (04:17→20:07)
[2021-03-27 04:23] LABS: Hematocrit 29.8 % (35.3-44.9); Hemoglobin 9.3 g/dL (11.5-15.4); Lymphocytes # 0.9 K/mcL (0.6-4.6); Lymphocytes % 7.5 %; Mean Corpuscular HGB Conc 31.2 g/dL (31.6-35.5); Mean Corpuscular Hemoglobin 23.8 pg (28.0-33.3); Mean Corpuscular Volume 76.4 fL (83.0-100.0); Mean Platelet Volume 11.8 fL (9.4-12.4); Monocytes # 0.6 K/mcL (0.0-1.3); Monocytes % 5.2 %; Neutrophils # 9.9 K/mcL (1.6-8.9); Platelet Count 151 K/mcL (140-400); Segmented Neutrophils % 86.3 %; White Blood Count 11.5 K/mcL (4.3-11.1)
[2021-03-27 04:39] LABS: VBG Ionized Calcium 1.08 mmol/L (1.15-1.35)
[2021-03-27 04:40] LABS: ABG Base Excess 3 mEq/L (-2 to 3); ABG HCO3 27 mEq/L (21-27); ABG Oxygen Saturation 95 % (95-98); ABG PCO2 40 mmHg (35-45); ABG PH 7.44 pH Units (7.32-7.45); ABG PO2 71 mmHg (85-104); ABG TCO2 28 mEq/L (20-26); Blood Gas Modality ASSIST CONTROL; Blood Gas VT 430 cc
[2021-03-27 04:44] LABS: BUN/Creatinine Ratio 36 (6-26); Blood Urea Nitrogen 16 mg/dL (6-20); Calcium 7.9 mg/dL (8.6-10.3); Carbon Dioxide 29 mEq/L (23-29); Chloride 99 mEq/L (98-107); Glucose 167 mg/dL (70-105); Magnesium 2.1 mg/dL (1.6-2.6); Osmolality,Calculated 279 (280-300); Potassium 3.7 mEq/L (3.5-5.1); Sodium 132 mEq/L (136-145); eGFR For African Americans > 60 (> 60); eGFR For Non-African Americans > 60 (> 60)
[2021-03-27] MEDS: MethylPREDNISolone 40 MG/ML VIAL IVP SCH ×2 (05:26→16:53)
[2021-03-27] MEDS: Calcium Gluconate 1gm/50mL 1 GM/50 ML BAG IVPB PRN (05:27)
[2021-03-27] MEDS: Potassium Phosphate 44 MEQ in 0.9 % Sodium Chloride 250 ML IVPB PRN (06:11)
[2021-03-27] MEDS ORDERED: *HR* Midazolam HCl 2 MG/2 ML VIAL IVP ONE (08:09)
[2021-03-27] MEDS ORDERED: *HR* Midazolam HCl 5 MG/5 ML VIAL IVP ONE (08:10)
[2021-03-27] MEDS: Aspirin 81 MG TAB.CHEW PO SCH (08:39)
[2021-03-27] MEDS: Pantoprazole 40 MG VIAL IVP SCH (08:40)
[2021-03-27] MEDS: Docusate Oral Soln 100 MG/10 ML UDC GTUBE SCH ×2 (08:40→20:07)
[2021-03-27] MEDS: cefTRIAXone 1,000 MG in Water for inj. (sterile) 10 ML IVP SCH (08:40)
[2021-03-27] MEDS: Chlorhexidine Rinse 15 ML MOUTHWASH MM SCH ×2 (08:40→20:07)
[2021-03-27] MEDS: *HR* Midazolam HCl 2 MG/2 ML VIAL IVP PRN ×2 (13:31→16:53)
[2021-03-27] MEDS: Midazolam HCl 50 MG/100 ML IV.SOLN IVC SCH (17:34)
[2021-03-27 19:11] LABS: VBG Ionized Calcium 1.13 mmol/L (1.15-1.35)
[2021-03-27 19:29] LABS: Phosphorous 2.6 mg/dL (2.7-4.5)
[2021-03-27] MEDS: *HR* Heparin 5,000 UNIT/ML VIAL SQ SCH (20:07)
[2021-03-28] MEDS: Insulin LISPRO 300 UNITS/3 ML VIAL SUBQ SCH ×7 (00:11→23:32)
[2021-03-28] MEDS: Artificial Tears SOLN 15 ML BOTTLE BOTH EYES SCH ×7 (00:11→23:33)
[2021-03-28] MEDS: Dexmedetomidine HCl 400 MCG/100 ML MLS IVC SCH ×4 (00:15→19:10)
[2021-03-28] MEDS: FentaNYL (PF) 2,500 MCG/50 ML IV.SOLN IVC SCH ×2 (03:46→07:28)
[2021-03-28] MEDS: Ipratropium/Albuterol Neb 3 ML IH SCH ×6 (03:47→23:37)
[2021-03-28 04:33] LABS: ABG Base Excess 2 mEq/L (-2 to 3); ABG HCO3 26 mEq/L (21-27); ABG Oxygen Saturation 97 % (95-98); ABG PCO2 41 mmHg (35-45); ABG PH 7.41 pH Units (7.32-7.45); ABG PO2 89 mmHg (85-104); ABG TCO2 28 mEq/L (20-26); Blood Gas VT 430 cc
[2021-03-28 04:52] LABS: Mean Corpuscular Hemoglobin 23.4 pg (28.0-33.3); Mean Corpuscular Volume 75.1 fL (83.0-100.0); Red Cell Distribution Width 15.9 % (11.5-14.5)
[2021-03-28 04:53] LABS: Hematocrit 29.9 % (35.3-44.9); Hemoglobin 9.3 g/dL (11.5-15.4); Immature Granulocytes % 0.9 % (0-4); Immature Platelets 9.1 % (1.1-6.1); Lymphocytes # 1.1 K/mcL (0.6-4.6); Lymphocytes % 12.3 %; Mean Corpuscular HGB Conc 31.1 g/dL (31.6-35.5); Monocytes # 0.8 K/mcL (0.0-1.3); Monocytes % 9.1 %; Neutrophils # 7.1 K/mcL (1.6-8.9); Platelet Count 137 K/mcL (140-400); Red Blood Count 3.98 M/mcL (3.82-4.97); Segmented Neutrophils % 77.7 %; White Blood Count 9.1 K/mcL (4.3-11.1)
[2021-03-28 04:59] LABS: BUN/Creatinine Ratio 47 (6-26); Blood Urea Nitrogen 16 mg/dL (6-20); Carbon Dioxide 25 mEq/L (23-29); Chloride 103 mEq/L (98-107); Glucose 142 mg/dL (70-105); Osmolality,Calculated 280 (280-300); Phosphorous 2.4 mg/dL (2.7-4.5); Potassium 4.2 mEq/L (3.5-5.1); Sodium 133 mEq/L (136-145); eGFR For African Americans > 60 (> 60); eGFR For Non-African Americans > 60 (> 60)
[2021-03-28] MEDS: *HR* Heparin 5,000 UNIT/ML VIAL SQ SCH ×3 (05:43→20:29)
[2021-03-28] MEDS: MethylPREDNISolone 40 MG/ML VIAL IVP SCH ×2 (05:44→17:45)
[2021-03-28] MEDS: Potassium Phosphate 44 MEQ in 0.9 % Sodium Chloride 250 ML IVPB PRN (06:07)
[2021-03-28] MEDS: Pantoprazole 40 MG VIAL IVP SCH (08:36)
[2021-03-28] MEDS: cefTRIAXone 1,000 MG in Water for inj. (sterile) 10 ML IVP SCH (08:37)
[2021-03-28] MEDS: Aspirin 81 MG TAB.CHEW PO SCH (08:45)
[2021-03-28] MEDS: Chlorhexidine Rinse 15 ML MOUTHWASH MM SCH ×2 (08:45→20:29)
[2021-03-28] MEDS: Docusate Oral Soln 100 MG/10 ML UDC GTUBE SCH ×2 (08:45→20:29)
[2021-03-28] MEDS: Midazolam HCl 50 MG/100 ML IV.SOLN IVC SCH ×2 (09:07→20:11)
[2021-03-29] MEDS: Dexmedetomidine HCl 400 MCG/100 ML MLS IVC SCH ×4 (01:06→22:30)
[2021-03-29] MEDS: Ipratropium/Albuterol Neb 3 ML IH SCH ×6 (03:27→23:46)
[2021-03-29 03:28] LABS: Basophils % 0.1 %; Hematocrit 31.2 % (35.3-44.9); Hemoglobin 9.7 g/dL (11.5-15.4); Immature Granulocytes % 0.8 % (0-4); Lymphocytes # 1.2 K/mcL (0.6-4.6); Mean Corpuscular HGB Conc 31.1 g/dL (31.6-35.5); Mean Corpuscular Hemoglobin 23.4 pg (28.0-33.3); Mean Corpuscular Volume 75.2 fL (83.0-100.0); Mean Platelet Volume 11.8 fL (9.4-12.4); Monocytes # 1.1 K/mcL (0.0-1.3); Neutrophils # 8.8 K/mcL (1.6-8.9); Platelet Count 168 K/mcL (140-400); Red Blood Count 4.15 M/mcL (3.82-4.97); Red Cell Distribution Width 16.2 % (11.5-14.5); Segmented Neutrophils % 78.1 %; White Blood Count 11.3 K/mcL (4.3-11.1)
[2021-03-29] MEDS: Artificial Tears SOLN 15 ML BOTTLE BOTH EYES SCH ×6 (03:32→23:24)
[2021-03-29] MEDS: Midazolam HCl 50 MG/100 ML IV.SOLN IVC SCH ×2 (03:32→19:12)
[2021-03-29 03:50] LABS: BUN/Creatinine Ratio 33 (6-26); Blood Urea Nitrogen 14 mg/dL (6-20); Calcium 8.2 mg/dL (8.6-10.3); Carbon Dioxide 29 mEq/L (23-29); Chloride 100 mEq/L (98-107); Glucose 133 mg/dL (70-105); Osmolality,Calculated 278 (280-300); Phosphorous 3.7 mg/dL (2.7-4.5); Potassium 4.6 mEq/L (3.5-5.1); Sodium 133 mEq/L (136-145); eGFR For African Americans > 60 (> 60); eGFR For Non-African Americans > 60 (> 60)
[2021-03-29 03:53] LABS: VBG Ionized Calcium 1.16 mmol/L (1.15-1.35)
[2021-03-29 04:16] LABS: ABG Base Excess 3 mEq/L (-2 to 3); ABG HCO3 27 mEq/L (21-27); ABG Oxygen Saturation 98 % (95-98); ABG PCO2 39 mmHg (35-45); ABG PH 7.45 pH Units (7.32-7.45); ABG PO2 92 mmHg (85-104); ABG TCO2 28 mEq/L (20-26); Blood Gas VT 430 cc
[2021-03-29] MEDS: Insulin LISPRO 300 UNITS/3 ML VIAL SUBQ SCH ×6 (05:10→23:34)
[2021-03-29] MEDS: *HR* Heparin 5,000 UNIT/ML VIAL SQ SCH ×3 (05:12→22:30)
[2021-03-29] MEDS: MethylPREDNISolone 40 MG/ML VIAL IVP SCH (05:13)
[2021-03-29] MEDS: FentaNYL (PF) 2,500 MCG/50 ML IV.SOLN IVC SCH (07:00)
[2021-03-29] MEDS: Pantoprazole 40 MG VIAL IVP SCH (07:54)
[2021-03-29] MEDS: Docusate Oral Soln 100 MG/10 ML UDC GTUBE SCH ×2 (07:54→20:13)
[2021-03-29] MEDS: cefTRIAXone 1,000 MG in Water for inj. (sterile) 10 ML IVP SCH (07:54)
[2021-03-29] MEDS: Chlorhexidine Rinse 15 ML MOUTHWASH MM SCH ×2 (07:54→20:13)
[2021-03-29] MEDS: Aspirin 81 MG TAB.CHEW PO SCH (07:55)
[2021-03-30] MEDS: Ipratropium/Albuterol Neb 3 ML IH SCH ×6 (03:44→23:20)
[2021-03-30] MEDS: Insulin LISPRO 300 UNITS/3 ML VIAL SUBQ SCH ×5 (04:00→20:22)
[2021-03-30 04:40] LABS: Hemoglobin 10.1 g/dL (11.5-15.4); Mean Corpuscular Volume 76.3 fL (83.0-100.0); Red Cell Distribution Width 16.4 % (11.5-14.5)
[2021-03-30 04:41] LABS: Basophils % 0.2 %
[2021-03-30 04:42] LABS: Hematocrit 33.2 % (35.3-44.9); Immature Granulocytes % 1.5 % (0-4); Lymphocytes # 3.5 K/mcL (0.6-4.6); Lymphocytes % 18.4 %; Mean Corpuscular HGB Conc 30.4 g/dL (31.6-35.5); Mean Corpuscular Hemoglobin 23.2 pg (28.0-33.3); Mean Platelet Volume 12.1 fL (9.4-12.4); Monocytes # 1.7 K/mcL (0.0-1.3); Monocytes % 8.8 %; Platelet Count 187 K/mcL (140-400); Red Blood Count 4.35 M/mcL (3.82-4.97); Segmented Neutrophils % 71.1 %; White Blood Count 18.9 K/mcL (4.3-11.1)
[2021-03-30 04:44] LABS: Neutrophils # 13.4 K/mcL (1.6-8.9)
[2021-03-30 04:50] LABS: VBG Ionized Calcium 1.14 mmol/L (1.15-1.35)
[2021-03-30 04:51] LABS: ABG Base Excess 2 mEq/L (-2 to 3); ABG HCO3 27 mEq/L (21-27); ABG Oxygen Saturation 97 % (95-98); ABG PCO2 42 mmHg (35-45); ABG PH 7.41 pH Units (7.32-7.45); ABG PO2 86 mmHg (85-104); ABG TCO2 28 mEq/L (20-26); Blood Gas VT 430 cc
[2021-03-30 04:58] LABS: BUN/Creatinine Ratio 48 (6-26); Blood Urea Nitrogen 23 mg/dL (6-20); Calcium 8.3 mg/dL (8.6-10.3); Carbon Dioxide 29 mEq/L (23-29); Chloride 99 mEq/L (98-107); Glucose 159 mg/dL (70-105); Osmolality,Calculated 285 (280-300); Phosphorous 3.9 mg/dL (2.7-4.5); Potassium 3.6 mEq/L (3.5-5.1); Sodium 134 mEq/L (136-145); eGFR For African Americans > 60 (> 60); eGFR For Non-African Americans > 60 (> 60)
[2021-03-30] MEDS: Midazolam HCl 50 MG/100 ML IV.SOLN IVC SCH ×2 (05:14→16:47)
[2021-03-30] MEDS: Artificial Tears SOLN 15 ML BOTTLE BOTH EYES SCH ×5 (05:15→20:21)
[2021-03-30] MEDS: Dexmedetomidine HCl 400 MCG/100 ML MLS IVC SCH ×3 (05:18→21:38)
[2021-03-30] MEDS: *HR* Heparin 5,000 UNIT/ML VIAL SQ SCH ×3 (06:06→21:15)
[2021-03-30] MEDS ORDERED: Potassium Chloride Elixir 20 MEQ/15 ML UDC GTUBE ONE (06:09)
[2021-03-30] MEDS: Aspirin 81 MG TAB.CHEW PO SCH (08:47)
[2021-03-30] MEDS: Docusate Oral Soln 100 MG/10 ML UDC GTUBE SCH ×2 (08:47→20:22)
[2021-03-30] MEDS: Chlorhexidine Rinse 15 ML MOUTHWASH MM SCH ×2 (08:47→20:21)
[2021-03-30] MEDS: Pantoprazole 40 MG VIAL IVP SCH (08:47)
[2021-03-30] MEDS: cefTRIAXone 1,000 MG in Water for inj. (sterile) 10 ML IVP SCH (08:48)
[2021-03-30] MEDS: FentaNYL (PF) 2,500 MCG/50 ML IV.SOLN IVC SCH ×2 (08:49→16:40)
[2021-03-30] MEDS ORDERED: MethylPREDNISolone 40 MG/ML VIAL IVP SCH (09:00)
[2021-03-30 10:01] LABS: Prothrombin Time 11.6 Seconds (9.4-12.1)
[2021-03-30 10:02] LABS: Albumin 2.7 g/dL (3.5-5.7); Albumin/Globulin Ratio 1.1 (1.1-2.2); Bilirubin,Direct 0.1 mg/dL (0.0-0.2); Bilirubin,Indirect 0.3 mg/dL (0.0-1.0); Bilirubin,Total 0.4 mg/dL (0.3-1.0); Globulin 2.4 g/dL (2.4-3.5); Total Protein 5.1 g/dL (6.4-8.9)
[2021-03-30] MEDS: Potassium Chloride Elixir 20 MEQ/15 ML UDC GTUBE PRN (14:08)
[2021-03-31] MEDS: Metoclopramide 10 MG/10 ML UD.LIQ PO SCH ×4 (00:06→17:02)
[2021-03-31] MEDS: Artificial Tears SOLN 15 ML BOTTLE BOTH EYES SCH ×6 (00:07→20:09)
[2021-03-31] MEDS: Insulin LISPRO 300 UNITS/3 ML VIAL SUBQ SCH ×6 (00:07→20:09)
[2021-03-31] MEDS: Midazolam HCl 50 MG/100 ML IV.SOLN IVC SCH ×2 (02:41→14:56)
[2021-03-31] MEDS: Ipratropium/Albuterol Neb 3 ML IH SCH ×6 (04:09→23:40)
[2021-03-31] MEDS: Dexmedetomidine HCl 400 MCG/100 ML MLS IVC SCH ×3 (04:38→19:45)
[2021-03-31 05:02] LABS: VBG Ionized Calcium 1.06 mmol/L (1.15-1.35)
[2021-03-31 05:13] LABS: Basophils % 0.1 %; Hemoglobin 8.9 g/dL (11.5-15.4)
[2021-03-31 05:15] LABS: Hematocrit 28.5 % (35.3-44.9); Immature Granulocytes % 1.9 % (0-4); Lymphocytes % 12.5 %; Mean Corpuscular HGB Conc 31.2 g/dL (31.6-35.5); Mean Corpuscular Hemoglobin 23.8 pg (28.0-33.3); Mean Corpuscular Volume 76.2 fL (83.0-100.0); Mean Platelet Volume 13.3 fL (9.4-12.4); Neutrophils # 8.9 K/mcL (1.6-8.9); Platelet Count 168 K/mcL (140-400); Red Blood Count 3.74 M/mcL (3.82-4.97); Red Cell Distribution Width 16.7 % (11.5-14.5); Segmented Neutrophils % 76.5 %; White Blood Count 11.6 K/mcL (4.3-11.1)
[2021-03-31 05:18] LABS: Lymphocytes # 1.5 K/mcL (0.6-4.6)
[2021-03-31 05:28] LABS: BUN/Creatinine Ratio 48 (6-26); Blood Urea Nitrogen 22 mg/dL (6-20); Calcium 8.2 mg/dL (8.6-10.3); Carbon Dioxide 27 mEq/L (23-29); Chloride 98 mEq/L (98-107); Glucose 183 mg/dL (70-105); Magnesium 1.9 mg/dL (1.6-2.6); Osmolality,Calculated 278 (280-300); Phosphorous 4.1 mg/dL (2.7-4.5); Potassium 4.7 mEq/L (3.5-5.1); Sodium 130 mEq/L (136-145); eGFR For African Americans > 60 (> 60); eGFR For Non-African Americans > 60 (> 60)
[2021-03-31] MEDS ORDERED: Calcium Gluconate 1gm/50mL 1 GM/50 ML BAG IVPB PRN (06:00)
[2021-03-31] MEDS: *HR* Heparin 5,000 UNIT/ML VIAL SQ SCH ×3 (06:31→22:53)
[2021-03-31] MEDS: Calcium Gluconate 1gm/50mL 1 GM/50 ML BAG IVPB PRN (06:32)
[2021-03-31] MEDS: Pantoprazole 40 MG VIAL IVP SCH (09:25)
[2021-03-31] MEDS: Aspirin 81 MG TAB.CHEW PO SCH (09:25)
[2021-03-31] MEDS: Chlorhexidine Rinse 15 ML MOUTHWASH MM SCH ×2 (09:25→20:09)
[2021-03-31] MEDS: Docusate Oral Soln 100 MG/10 ML UDC GTUBE SCH ×2 (11:41→20:09)
[2021-03-31] MEDS: FentaNYL (PF) 2,500 MCG/50 ML IV.SOLN IVC SCH (19:30)
[2021-04-01] MEDS: Artificial Tears SOLN 15 ML BOTTLE BOTH EYES SCH ×7 (00:17→23:47)
[2021-04-01] MEDS: Metoclopramide 10 MG/10 ML UD.LIQ PO SCH ×5 (00:17→23:47)
[2021-04-01] MEDS: Insulin LISPRO 300 UNITS/3 ML VIAL SUBQ SCH ×7 (00:18→23:47)
[2021-04-01] MEDS: Midazolam HCl 50 MG/100 ML IV.SOLN IVC SCH ×2 (01:30→14:05)
[2021-04-01] MEDS: Dexmedetomidine HCl 400 MCG/100 ML MLS IVC SCH ×2 (02:30→11:12)
[2021-04-01] MEDS: Ipratropium/Albuterol Neb 3 ML IH SCH ×6 (04:08→23:30)
[2021-04-01 04:11] LABS: Hematocrit 27.2 % (35.3-44.9); Hemoglobin 8.5 g/dL (11.5-15.4); Mean Corpuscular HGB Conc 31.3 g/dL (31.6-35.5); Mean Corpuscular Hemoglobin 23.5 pg (28.0-33.3); Mean Corpuscular Volume 75.3 fL (83.0-100.0); Platelet Count 200 K/mcL (140-400); Red Blood Count 3.61 M/mcL (3.82-4.97); Red Cell Distribution Width 16.6 % (11.5-14.5); White Blood Count 12.5 K/mcL (4.3-11.1)
[2021-04-01 04:18] LABS: VBG Ionized Calcium 1.14 mmol/L (1.15-1.35)
[2021-04-01 04:29] LABS: BUN/Creatinine Ratio 37 (6-26); Blood Urea Nitrogen 15 mg/dL (6-20); Calcium 8.4 mg/dL (8.6-10.3); Carbon Dioxide 30 mEq/L (23-29); Chloride 97 mEq/L (98-107); Glucose 126 mg/dL (70-105); Osmolality,Calculated 274 (280-300); Phosphorous 4.5 mg/dL (2.7-4.5); Potassium 4.4 mEq/L (3.5-5.1); Sodium 131 mEq/L (136-145); eGFR For African Americans > 60 (> 60); eGFR For Non-African Americans > 60 (> 60)
[2021-04-01] MEDS: *HR* Heparin 5,000 UNIT/ML VIAL SQ SCH ×3 (06:20→21:17)
[2021-04-01] MEDS: Chlorhexidine Rinse 15 ML MOUTHWASH MM SCH ×2 (08:04→20:28)
[2021-04-01] MEDS: Pantoprazole 40 MG VIAL IVP SCH (08:04)
[2021-04-01] MEDS: Docusate Oral Soln 100 MG/10 ML UDC GTUBE SCH ×2 (08:04→20:28)
[2021-04-01] MEDS: Aspirin 81 MG TAB.CHEW PO SCH (08:05)
[2021-04-01] MEDS ORDERED: *HR* LORazepam 2 MG/ML VIAL IVP ONE (10:23)
[2021-04-01] MEDS ORDERED: *HR* LORazepam 2 MG/ML VIAL ONE (10:24)
[2021-04-01] MEDS: *HR* LORazepam 2 MG/ML VIAL IVP SCH ×4 (11:59→23:46)
[2021-04-01] MEDS: FentaNYL (PF) 2,500 MCG/50 ML IV.SOLN IVC SCH (23:46)
[2021-04-02] MEDS: Scopolamine Patch 1.5 MG PATCH.TD72 TD SCH (03:21)
[2021-04-02] MEDS: *HR* LORazepam 2 MG/ML VIAL IVP SCH ×5 (03:23→20:07)
[2021-04-02] MEDS: Artificial Tears SOLN 15 ML BOTTLE BOTH EYES SCH ×5 (03:23→20:04)
[2021-04-02] MEDS: Ipratropium/Albuterol Neb 3 ML IH SCH ×6 (03:24→23:43)
[2021-04-02] MEDS: Insulin LISPRO 300 UNITS/3 ML VIAL SUBQ SCH ×5 (03:28→20:04)
[2021-04-02 03:44] LABS: VBG Ionized Calcium 1.11 mmol/L (1.15-1.35)
[2021-04-02 03:49] LABS: Basophils % 0.2 %; Hemoglobin 9.1 g/dL (11.5-15.4); Immature Granulocytes % 1.5 % (0-4); Lymphocytes # 1.6 K/mcL (0.6-4.6); Lymphocytes % 9.5 %; Mean Corpuscular HGB Conc 31.4 g/dL (31.6-35.5); Mean Corpuscular Hemoglobin 23.9 pg (28.0-33.3); Mean Corpuscular Volume 76.1 fL (83.0-100.0); Mean Platelet Volume 12.4 fL (9.4-12.4); Monocytes # 1.7 K/mcL (0.0-1.3); Monocytes % 9.8 %; Neutrophils # 13.6 K/mcL (1.6-8.9); Platelet Count 276 K/mcL (140-400); Red Blood Count 3.81 M/mcL (3.82-4.97); White Blood Count 17.2 K/mcL (4.3-11.1)
[2021-04-02 04:00] LABS: BUN/Creatinine Ratio 35 (6-26); Blood Urea Nitrogen 14 mg/dL (6-20); Calcium 8.7 mg/dL (8.6-10.3); Carbon Dioxide 31 mEq/L (23-29); Chloride 97 mEq/L (98-107); Glucose 137 mg/dL (70-105); Osmolality,Calculated 279 (280-300); Potassium 3.9 mEq/L (3.5-5.1); Sodium 133 mEq/L (136-145); eGFR For African Americans > 60 (> 60); eGFR For Non-African Americans > 60 (> 60)
[2021-04-02 04:10] LABS: Phosphorous 3.5 mg/dL (2.7-4.5)
[2021-04-02 04:50] LABS: ABG Base Excess 3 mEq/L (-2 to 3); ABG HCO3 27 mEq/L (21-27); ABG Oxygen Saturation 96 % (95-98); ABG PCO2 39 mmHg (35-45); ABG PH 7.45 pH Units (7.32-7.45); ABG PO2 79 mmHg (85-104); ABG TCO2 28 mEq/L (20-26); Blood Gas VT 430 cc
[2021-04-02] MEDS: Metoclopramide 10 MG/10 ML UD.LIQ PO SCH ×3 (05:26→17:08)
[2021-04-02] MEDS: *HR* Heparin 5,000 UNIT/ML VIAL SQ SCH ×3 (05:26→21:52)
[2021-04-02] MEDS: Midazolam HCl 50 MG/100 ML IV.SOLN IVC SCH (05:27)
[2021-04-02] MEDS: Dexmedetomidine HCl 400 MCG/100 ML MLS IVC SCH (05:29)
[2021-04-02] MEDS: Docusate Oral Soln 100 MG/10 ML UDC GTUBE SCH ×2 (07:50→20:04)
[2021-04-02] MEDS: Pantoprazole 40 MG VIAL IVP SCH (07:50)
[2021-04-02] MEDS: Chlorhexidine Rinse 15 ML MOUTHWASH MM SCH ×2 (07:50→20:04)
[2021-04-02] MEDS: Aspirin 81 MG TAB.CHEW PO SCH (07:51)
[2021-04-02] MEDS: levETIRAcetam 500 MG/5 ML UDC GTUBE SCH ×2 (11:44→20:04)
[2021-04-02] MEDS ORDERED: Acetaminophen IV 1,000 MG/100 ML BAG IVPB ONE (20:25)
[2021-04-03] MEDS: Artificial Tears SOLN 15 ML BOTTLE BOTH EYES SCH ×6 (00:51→20:49)
[2021-04-03] MEDS: Insulin LISPRO 300 UNITS/3 ML VIAL SUBQ SCH ×6 (00:51→20:50)
[2021-04-03] MEDS: *HR* LORazepam 2 MG/ML VIAL IVP SCH ×7 (00:57→23:59)
[2021-04-03] MEDS: Metoclopramide 10 MG/10 ML UD.LIQ PO SCH ×5 (02:10→21:54)
[2021-04-03] MEDS: Ipratropium/Albuterol Neb 3 ML IH SCH ×6 (03:42→23:20)
[2021-04-03 03:49] LABS: Basophils % 0.1 %; Hemoglobin 8.2 g/dL (11.5-15.4); Immature Granulocytes % 1.2 % (0-4); Lymphocytes # 1.5 K/mcL (0.6-4.6); Lymphocytes % 10.5 %; Mean Corpuscular HGB Conc 30.4 g/dL (31.6-35.5); Mean Corpuscular Hemoglobin 23.4 pg (28.0-33.3); Mean Corpuscular Volume 77.1 fL (83.0-100.0); Mean Platelet Volume 12.1 fL (9.4-12.4); Monocytes # 1.2 K/mcL (0.0-1.3); Monocytes % 8.5 %; Neutrophils # 11.3 K/mcL (1.6-8.9); Platelet Count 274 K/mcL (140-400); Red Cell Distribution Width 17.2 % (11.5-14.5); Segmented Neutrophils % 79.7 %; White Blood Count 14.1 K/mcL (4.3-11.1)
[2021-04-03 03:51] LABS: VBG Ionized Calcium 1.14 mmol/L (1.15-1.35)
[2021-04-03 04:07] LABS: BUN/Creatinine Ratio 37 (6-26); Blood Urea Nitrogen 14 mg/dL (6-20); Calcium 8.6 mg/dL (8.6-10.3); Carbon Dioxide 30 mEq/L (23-29); Chloride 98 mEq/L (98-107); Glucose 118 mg/dL (70-105); Osmolality,Calculated 278 (280-300); Phosphorous 4.3 mg/dL (2.7-4.5); Potassium 4.2 mEq/L (3.5-5.1); Sodium 133 mEq/L (136-145); eGFR For African Americans > 60 (> 60); eGFR For Non-African Americans > 60 (> 60)
[2021-04-03 05:01] LABS: ABG Base Excess 5 mEq/L (-2 to 3); ABG HCO3 29 mEq/L (21-27); ABG Oxygen Saturation 94 % (95-98); ABG PCO2 40 mmHg (35-45); ABG PH 7.47 pH Units (7.32-7.45); ABG PO2 67 mmHg (85-104); ABG TCO2 30 mEq/L (20-26); Blood Gas Modality ASSIST CONTROL; Blood Gas VT 430 cc
[2021-04-03] MEDS: *HR* Heparin 5,000 UNIT/ML VIAL SQ SCH ×3 (06:23→20:47)
[2021-04-03] MEDS ORDERED: Lidocaine -MPF 2% 2 ML VIAL ONE (08:13)
[2021-04-03] MEDS: FentaNYL (PF) 2,500 MCG/50 ML IV.SOLN IVC SCH (08:23)
[2021-04-03] MEDS: Midazolam HCl 50 MG/100 ML IV.SOLN IVC SCH (08:24)
[2021-04-03] MEDS: Dexmedetomidine HCl 400 MCG/100 ML MLS IVC SCH (08:24)
[2021-04-03] MEDS: Docusate Oral Soln 100 MG/10 ML UDC GTUBE SCH ×2 (08:51→20:48)
[2021-04-03] MEDS: levETIRAcetam 500 MG/5 ML UDC GTUBE SCH ×2 (08:51→20:48)
[2021-04-03] MEDS: Aspirin 81 MG TAB.CHEW PO SCH (08:52)
[2021-04-03] MEDS: Pantoprazole 40 MG VIAL IVP SCH (08:52)
[2021-04-03] MEDS: Chlorhexidine Rinse 15 ML MOUTHWASH MM SCH ×2 (08:52→20:48)
[2021-04-03 12:46] LABS: Bilirubin,Urine Negative (Negative); Blood,Urine Large (Negative); Clarity,Urine Turbid (Clear); Color,Urine Yellow (Yellow); Glucose,Urine (UA) Normal (Normal); Ketones,Urine Negative (Negative); Leukocyte Esterase,Urine Negative (Negative); Nitrite,Urine Negative (Negative); Protein,Urine >=300 mg/dL (Neg-Trace); Urobilinogen,Urine Normal (Normal)
[2021-04-03 13:08] LABS: RBC,Urine TNTC per hpf (0-3); Squamous Epithelial Cell,Urine Moderate per hpf (None-Few)
[2021-04-03 13:09] LABS: Amorphous Sediment,Urine Many per hpf (None-Few); Bacteria,Urine Few per hpf (None-Few)
[2021-04-03] MEDS: Vancomycin 1,250 MG/262.5 ML IV.SOLN IVPB SCH ×2 (13:26→23:59)
[2021-04-03] MEDS: Cefepime HCl 2,000 MG in Water for inj. (sterile) 20 ML IVP SCH ×2 (13:26→20:48)
[2021-04-04] MEDS: FentaNYL (PF) 2,500 MCG/50 ML IV.SOLN IVC SCH (02:40)
[2021-04-04] MEDS: Ipratropium/Albuterol Neb 3 ML IH SCH ×6 (03:24→23:25)
[2021-04-04 03:35] LABS: Basophils % 0.1 %; Hematocrit 25.2 % (35.3-44.9); Hemoglobin 7.8 g/dL (11.5-15.4); Immature Granulocytes % 1.2 % (0-4); Lymphocytes # 1.3 K/mcL (0.6-4.6); Lymphocytes % 9.2 %; Mean Corpuscular Hemoglobin 23.6 pg (28.0-33.3); Mean Corpuscular Volume 76.4 fL (83.0-100.0); Mean Platelet Volume 11.8 fL (9.4-12.4); Monocytes # 1.3 K/mcL (0.0-1.3); Monocytes % 9.4 %; Neutrophils # 10.9 K/mcL (1.6-8.9); Platelet Count 278 K/mcL (140-400); Red Cell Distribution Width 17.5 % (11.5-14.5); Segmented Neutrophils % 80.1 %; White Blood Count 13.7 K/mcL (4.3-11.1)
[2021-04-04 03:38] LABS: VBG Ionized Calcium 1.17 mmol/L (1.15-1.35)
[2021-04-04 04:00] LABS: BUN/Creatinine Ratio 49 (6-26); Blood Urea Nitrogen 19 mg/dL (6-20); Calcium 8.4 mg/dL (8.6-10.3); Carbon Dioxide 29 mEq/L (23-29); Chloride 100 mEq/L (98-107); Glucose 125 mg/dL (70-105); Osmolality,Calculated 284 (280-300); Phosphorous 4.4 mg/dL (2.7-4.5); Potassium 3.9 mEq/L (3.5-5.1); Sodium 135 mEq/L (136-145); eGFR For African Americans > 60 (> 60); eGFR For Non-African Americans > 60 (> 60)
[2021-04-04] MEDS: Insulin LISPRO 300 UNITS/3 ML VIAL SUBQ SCH ×7 (04:12→23:59)
[2021-04-04] MEDS: Cefepime HCl 2,000 MG in Water for inj. (sterile) 20 ML IVP SCH ×3 (04:51→19:56)
[2021-04-04] MEDS: *HR* LORazepam 2 MG/ML VIAL IVP SCH ×7 (04:51→23:59)
[2021-04-04] MEDS: Artificial Tears SOLN 15 ML BOTTLE BOTH EYES SCH ×7 (04:51→23:59)
[2021-04-04] MEDS: Dexmedetomidine HCl 400 MCG/100 ML MLS IVC SCH (04:52)
[2021-04-04] MEDS: Metoclopramide 10 MG/10 ML UD.LIQ PO SCH ×3 (04:52→18:16)
[2021-04-04] MEDS: *HR* Heparin 5,000 UNIT/ML VIAL SQ SCH ×3 (04:55→19:57)
[2021-04-04] MEDS ORDERED: Water for inj. (sterile) 20 ML ONE (05:02)
[2021-04-04] MEDS: Potassium Chloride Elixir 20 MEQ/15 ML UDC GTUBE PRN ×2 (05:28→18:38)
[2021-04-04] MEDS ORDERED: Furosemide 40 MG/4 ML VIAL IVP ONE (07:53)
[2021-04-04] MEDS: Docusate Oral Soln 100 MG/10 ML UDC GTUBE SCH ×3 (09:00→19:56)
[2021-04-04] MEDS: Aspirin 81 MG TAB.CHEW PO SCH ×2 (09:00→09:10)
[2021-04-04] MEDS: Chlorhexidine Rinse 15 ML MOUTHWASH MM SCH ×2 (09:10→19:56)
[2021-04-04] MEDS: Pantoprazole 40 MG VIAL IVP SCH (09:11)
[2021-04-04] MEDS: levETIRAcetam 500 MG/5 ML UDC GTUBE SCH ×2 (09:11→18:39)
[2021-04-04] MEDS: Vancomycin 1,250 MG/262.5 ML IV.SOLN IVPB SCH (13:45)
[2021-04-04 16:58] LABS: VBG Ionized Calcium 1.04 mmol/L (1.15-1.35)
[2021-04-04] MEDS: Calcium Gluconate 1gm/50mL 1 GM/50 ML BAG IVPB PRN (18:39)
[2021-04-04] MEDS ORDERED: *HR* LORazepam 2 MG/ML VIAL ONE (20:19)
[2021-04-05] MEDS: Vancomycin 1,250 MG/262.5 ML IV.SOLN IVPB SCH ×2 (00:02→13:47)
[2021-04-05] MEDS: Metoclopramide 10 MG/10 ML UD.LIQ PO SCH ×2 (00:02→04:33)
[2021-04-05] MEDS: Dexmedetomidine HCl 400 MCG/100 ML MLS IVC SCH ×2 (01:47→19:40)
[2021-04-05] MEDS: Scopolamine Patch 1.5 MG PATCH.TD72 TD SCH (02:39)
[2021-04-05 02:42] LABS: Basophils % 0.2 %; Hematocrit 23.3 % (35.3-44.9); Hemoglobin 7.3 g/dL (11.5-15.4); Lymphocytes # 1.1 K/mcL (0.6-4.6); Lymphocytes % 8.6 %; Mean Corpuscular HGB Conc 31.3 g/dL (31.6-35.5); Mean Corpuscular Volume 76.6 fL (83.0-100.0); Mean Platelet Volume 12.3 fL (9.4-12.4); Monocytes # 1.2 K/mcL (0.0-1.3); Monocytes % 9.4 %; Neutrophils # 9.9 K/mcL (1.6-8.9); Platelet Count 277 K/mcL (140-400); Red Blood Count 3.04 M/mcL (3.82-4.97); Segmented Neutrophils % 80.8 %; White Blood Count 12.2 K/mcL (4.3-11.1)
[2021-04-05 02:47] LABS: VBG Ionized Calcium 1.09 mmol/L (1.15-1.35)
[2021-04-05 03:01] LABS: BUN/Creatinine Ratio 63 (6-26); Blood Urea Nitrogen 24 mg/dL (6-20); Calcium 8.3 mg/dL (8.6-10.3); Carbon Dioxide 28 mEq/L (23-29); Chloride 102 mEq/L (98-107); Glucose 177 mg/dL (70-105); Magnesium 1.9 mg/dL (1.6-2.6); Osmolality,Calculated 290 (280-300); Phosphorous 3.7 mg/dL (2.7-4.5); Potassium 3.9 mEq/L (3.5-5.1); Sodium 136 mEq/L (136-145); eGFR For African Americans > 60 (> 60); eGFR For Non-African Americans > 60 (> 60)
[2021-04-05] MEDS: Ipratropium/Albuterol Neb 3 ML IH SCH ×6 (03:11→23:38)
[2021-04-05] MEDS: Artificial Tears SOLN 15 ML BOTTLE BOTH EYES SCH ×5 (03:30→19:41)
[2021-04-05] MEDS: Cefepime HCl 2,000 MG in Water for inj. (sterile) 20 ML IVP SCH ×3 (03:31→19:41)
[2021-04-05] MEDS: Potassium Chloride Elixir 20 MEQ/15 ML UDC GTUBE PRN ×2 (03:31→17:58)
[2021-04-05] MEDS: Calcium Gluconate 1gm/50mL 1 GM/50 ML BAG IVPB PRN ×2 (03:31→21:34)
[2021-04-05] MEDS: *HR* LORazepam 2 MG/ML VIAL IVP SCH ×2 (03:32→07:55)
[2021-04-05] MEDS: Insulin LISPRO 300 UNITS/3 ML VIAL SUBQ SCH ×5 (04:30→20:32)
[2021-04-05] MEDS: FentaNYL (PF) 2,500 MCG/50 ML IV.SOLN IVC SCH (04:32)
[2021-04-05] MEDS: *HR* Heparin 5,000 UNIT/ML VIAL SQ SCH ×3 (04:33→20:31)
[2021-04-05] MEDS: Aspirin 81 MG TAB.CHEW PO SCH (07:55)
[2021-04-05] MEDS: Pantoprazole 40 MG VIAL IVP SCH (07:55)
[2021-04-05] MEDS: Chlorhexidine Rinse 15 ML MOUTHWASH MM SCH ×2 (07:55→20:31)
[2021-04-05] MEDS: Docusate Oral Soln 100 MG/10 ML UDC GTUBE SCH ×2 (07:55→19:41)
[2021-04-05] MEDS: Bisacodyl 10 MG RECTAL SUPPOSITORY RC SCH (13:47)
[2021-04-05] MEDS ORDERED: diazePAM 5 MG TABLET PO SCH (15:00)
[2021-04-05] MEDS: *HR* LORazepam 2 MG/ML VIAL IVP PRN ×3 (16:43→20:13)
[2021-04-05] MEDS ORDERED: *HR* LORazepam 2 MG/ML VIAL ONE (17:30)
[2021-04-05] MEDS ORDERED: *HR* Midazolam HCl 5 MG/5 ML VIAL IVP ONE ×2 (17:38→17:47)
[2021-04-05] MEDS ORDERED: *HR* LORazepam 2 MG/ML VIAL IVP ONE ×2 (17:47→19:09)
[2021-04-05] MEDS: Midazolam HCl 50 MG/100 ML IV.SOLN IVC SCH (19:15)
[2021-04-05 20:59] LABS: VBG Ionized Calcium 1.11 mmol/L (1.15-1.35)
[2021-04-05 21:14] LABS: Magnesium 2.2 mg/dL (1.6-2.6); Potassium 4.3 mEq/L (3.5-5.1)
[2021-04-06] MEDS: Artificial Tears SOLN 15 ML BOTTLE BOTH EYES SCH ×6 (00:07→21:12)
[2021-04-06] MEDS: Insulin LISPRO 300 UNITS/3 ML VIAL SUBQ SCH ×6 (00:07→21:12)
[2021-04-06] MEDS: Dexmedetomidine HCl 400 MCG/100 ML MLS IVC SCH ×2 (00:43→06:57)
[2021-04-06] MEDS: FentaNYL (PF) 2,500 MCG/50 ML IV.SOLN IVC SCH ×2 (00:44→19:30)
[2021-04-06] MEDS: Midazolam HCl 50 MG/100 ML IV.SOLN IVC SCH ×3 (00:44→20:48)
[2021-04-06] MEDS: *HR* Heparin 5,000 UNIT/ML VIAL SQ SCH ×3 (03:17→21:24)
[2021-04-06] MEDS: Cefepime HCl 2,000 MG in Water for inj. (sterile) 20 ML IVP SCH ×3 (03:29→21:23)
[2021-04-06] MEDS: Vancomycin 1,250 MG/262.5 ML IV.SOLN IVPB SCH (03:30)
[2021-04-06] MEDS: Ipratropium/Albuterol Neb 3 ML IH SCH ×6 (03:32→23:22)
[2021-04-06 04:09] LABS: Basophils % 0.2 %; Hematocrit 22.3 % (35.3-44.9); Hemoglobin 6.9 g/dL (11.5-15.4); Immature Granulocytes % 1.2 % (0-4); Lymphocytes # 1.4 K/mcL (0.6-4.6); Lymphocytes % 12.9 %; Mean Corpuscular HGB Conc 30.9 g/dL (31.6-35.5); Mean Corpuscular Hemoglobin 24.3 pg (28.0-33.3); Mean Corpuscular Volume 78.5 fL (83.0-100.0); Mean Platelet Volume 12.1 fL (9.4-12.4); Monocytes # 0.7 K/mcL (0.0-1.3); Monocytes % 5.8 %; Neutrophils # 8.9 K/mcL (1.6-8.9); Platelet Count 259 K/mcL (140-400); Red Blood Count 2.84 M/mcL (3.82-4.97); Red Cell Distribution Width 18.3 % (11.5-14.5); Segmented Neutrophils % 79.9 %; White Blood Count 11.1 K/mcL (4.3-11.1)
[2021-04-06 04:26] LABS: VBG Ionized Calcium 1.23 mmol/L (1.15-1.35)
[2021-04-06 04:27] LABS: BUN/Creatinine Ratio 58 (6-26); Blood Urea Nitrogen 22 mg/dL (6-20); Calcium 8.6 mg/dL (8.6-10.3); Carbon Dioxide 26 mEq/L (23-29); Chloride 105 mEq/L (98-107); Glucose 143 mg/dL (70-105); Magnesium 2.3 mg/dL (1.6-2.6); Osmolality,Calculated 286 (280-300); Phosphorous 4.5 mg/dL (2.7-4.5); Potassium 4.2 mEq/L (3.5-5.1); Sodium 135 mEq/L (136-145); eGFR For African Americans > 60 (> 60); eGFR For Non-African Americans > 60 (> 60)
[2021-04-06] MEDS ORDERED: 0.9 % Sodium Chloride 500 ML ONE (06:47)
[2021-04-06] MEDS: Aspirin 81 MG TAB.CHEW PO SCH (09:09)
[2021-04-06] MEDS: Pantoprazole 40 MG VIAL IVP SCH (09:10)
[2021-04-06] MEDS: Docusate Oral Soln 100 MG/10 ML UDC GTUBE SCH ×2 (09:10→21:25)
[2021-04-06] MEDS: Chlorhexidine Rinse 15 ML MOUTHWASH MM SCH ×2 (09:10→21:19)
[2021-04-06] MEDS ORDERED: Vancomycin 1,750 MG/517.5 ML IV.SOLN IVPB SCH (10:00)
[2021-04-06] MEDS ORDERED: Lidocaine Jelly 6ml 1 APPL/6 ML JEL.PF.APP ONE (10:21)
[2021-04-06] MEDS ORDERED: Lidocaine/EPI 1:200k 1% PF 10 ML VIAL ONE (10:21)
[2021-04-06] MEDS: Vancomycin 2,000 MG/520 ML IV.SOLN IVPB SCH ×2 (11:04→21:25)
[2021-04-06] MEDS ORDERED: *HR* Rocuronium Bromide 50 MG/5 ML VIAL ONE (11:36)
[2021-04-06] MEDS ORDERED: *HR* Succinylcholine 200 MG/10 ML VIAL IVP ONE (11:36)
[2021-04-06] MEDS: Bisacodyl 10 MG RECTAL SUPPOSITORY RC SCH (17:01)
[2021-04-07] MEDS: Insulin LISPRO 300 UNITS/3 ML VIAL SUBQ SCH ×7 (00:25→23:53)
[2021-04-07] MEDS: Artificial Tears SOLN 15 ML BOTTLE BOTH EYES SCH ×7 (00:25→23:53)
[2021-04-07] MEDS: Ipratropium/Albuterol Neb 3 ML IH SCH ×6 (03:42→23:26)
[2021-04-07] MEDS: Cefepime HCl 2,000 MG in Water for inj. (sterile) 20 ML IVP SCH ×3 (04:25→20:19)
[2021-04-07] MEDS: *HR* LORazepam 2 MG/ML VIAL IVP PRN ×2 (04:28→17:07)
[2021-04-07 04:38] LABS: ABG Base Excess 1 mEq/L (-2 to 3); ABG HCO3 24 mEq/L (21-27); ABG Oxygen Saturation 96 % (95-98); ABG PCO2 31 mmHg (35-45); ABG PH 7.49 pH Units (7.32-7.45); ABG PO2 73 mmHg (85-104); ABG TCO2 25 mEq/L (20-26); Blood Gas VT 430 cc
[2021-04-07] MEDS: *HR* Heparin 5,000 UNIT/ML VIAL SQ SCH ×3 (05:02→20:19)
[2021-04-07] MEDS: Midazolam HCl 50 MG/100 ML IV.SOLN IVC SCH (05:03)
[2021-04-07 06:06] LABS: Basophils % 0.2 %; Hematocrit 32.3 % (35.3-44.9); Immature Granulocytes % 1.2 % (0-4); Lymphocytes # 1.2 K/mcL (0.6-4.6); Lymphocytes % 9.8 %; Mean Corpuscular HGB Conc 31.6 g/dL (31.6-35.5); Mean Corpuscular Hemoglobin 25.4 pg (28.0-33.3); Mean Corpuscular Volume 80.3 fL (83.0-100.0); Mean Platelet Volume 11.2 fL (9.4-12.4); Monocytes # 0.7 K/mcL (0.0-1.3); Monocytes % 5.9 %; Neutrophils # 9.9 K/mcL (1.6-8.9); Platelet Count 289 K/mcL (140-400); Red Blood Count 4.02 M/mcL (3.82-4.97); Red Cell Distribution Width 19.1 % (11.5-14.5); Segmented Neutrophils % 82.9 %
[2021-04-07 06:11] LABS: Hemoglobin 10.2 g/dL (11.5-15.4)
[2021-04-07 06:17] LABS: VBG Ionized Calcium 1.06 mmol/L (1.15-1.35)
[2021-04-07 06:27] LABS: Alanine Aminotransferase 27 Units/L (7-52); Albumin 2.9 g/dL (3.5-5.7); Albumin/Globulin Ratio 0.9 (1.1-2.2); Alkaline Phosphatase 84 Units/L (34-104); Aspartate Amino Transferase 31 Units/L (13-39); BUN/Creatinine Ratio 47 (6-26); Bilirubin,Total 1.2 mg/dL (0.3-1.0); Blood Urea Nitrogen 17 mg/dL (6-20); Calcium 8.3 mg/dL (8.6-10.3); Carbon Dioxide 25 mEq/L (23-29); Chloride 102 mEq/L (98-107); Globulin 3.2 g/dL (2.4-3.5); Glucose 114 mg/dL (70-105); Magnesium 1.8 mg/dL (1.6-2.6); Osmolality,Calculated 280 (280-300); Phosphorous 3.4 mg/dL (2.7-4.5); Potassium 3.7 mEq/L (3.5-5.1); Sodium 134 mEq/L (136-145); Total Protein 6.1 g/dL (6.4-8.9); eGFR For African Americans > 60 (> 60); eGFR For Non-African Americans > 60 (> 60)
[2021-04-07] MEDS: Aspirin 81 MG TAB.CHEW PO SCH (08:00)
[2021-04-07] MEDS: Docusate Oral Soln 100 MG/10 ML UDC GTUBE SCH ×2 (08:00→20:20)
[2021-04-07] MEDS: Potassium Chloride Elixir 20 MEQ/15 ML UDC GTUBE PRN (08:00)
[2021-04-07] MEDS: Pantoprazole 40 MG VIAL IVP SCH (08:16)
[2021-04-07] MEDS: Chlorhexidine Rinse 15 ML MOUTHWASH MM SCH ×2 (08:17→20:19)
[2021-04-07] MEDS: Calcium Gluconate 1gm/50mL 1 GM/50 ML BAG IVPB PRN (08:27)
[2021-04-07] MEDS ORDERED: Metoclopramide 10 MG/10 ML UD.LIQ GTUBE SCH (09:30)
[2021-04-07] MEDS ORDERED: *HR* FentaNYL PATCH 25 MCG PATCH TD SCH (09:30)
[2021-04-07] MEDS ORDERED: *HR* LORazepam Oral Conc 2 MG/ML PO SCH (09:30)
[2021-04-07] MEDS: Metoclopramide 10 MG/10 ML UD.LIQ GTUBE SCH ×2 (11:59→20:19)
[2021-04-07] MEDS: Bisacodyl 10 MG RECTAL SUPPOSITORY RC SCH (11:59)
[2021-04-07] MEDS: *HR* LORazepam Oral Conc 2 MG/ML GTUBE SCH ×4 (11:59→23:53)
[2021-04-07] MEDS: Glycopyrrolate 1 MG TABLET PO SCH ×2 (14:56→20:20)
[2021-04-07] MEDS: carvediloL 6.25 MG TABLET GTUBE SCH (20:23)
[2021-04-08] MEDS: Ipratropium/Albuterol Neb 3 ML IH SCH ×6 (03:07→23:38)
[2021-04-08] MEDS: Artificial Tears SOLN 15 ML BOTTLE BOTH EYES SCH ×6 (03:20→23:51)
[2021-04-08] MEDS: Insulin LISPRO 300 UNITS/3 ML VIAL SUBQ SCH ×5 (03:21→19:39)
[2021-04-08] MEDS: Metoclopramide 10 MG/10 ML UD.LIQ GTUBE SCH ×3 (03:39→21:37)
[2021-04-08] MEDS: *HR* LORazepam Oral Conc 2 MG/ML GTUBE SCH ×5 (03:39→21:38)
[2021-04-08] MEDS: *HR* Heparin 5,000 UNIT/ML VIAL SQ SCH ×3 (05:40→21:38)
[2021-04-08] MEDS: *HR* LORazepam 2 MG/ML VIAL IVP PRN (06:12)
[2021-04-08] MEDS ORDERED: Cefepime HCl 2,000 MG in 0.9 % Sodium Chloride Mini Bag 100 ML IVPB SCH (08:00)
[2021-04-08] MEDS: carvediloL 6.25 MG TABLET GTUBE SCH ×2 (09:13→16:25)
[2021-04-08] MEDS: Glycopyrrolate 1 MG TABLET PO SCH ×3 (09:13→21:38)
[2021-04-08] MEDS: Aspirin 81 MG TAB.CHEW PO SCH (09:13)
[2021-04-08] MEDS: Chlorhexidine Rinse 15 ML MOUTHWASH MM SCH ×2 (09:13→21:37)
[2021-04-08] MEDS: Pantoprazole 40 MG VIAL IVP SCH (09:13)
[2021-04-08] MEDS: Docusate Oral Soln 100 MG/10 ML UDC GTUBE SCH ×2 (09:13→21:37)
[2021-04-08] MEDS ORDERED: D5% in Water 1,000 ML IVC PRN (11:09)
[2021-04-08] MEDS ORDERED: Naloxone 0.4 MG/ML INJ IVP PRN (11:09)
[2021-04-08] MEDS ORDERED: Artificial Tears SOLN 15 ML BOTTLE BOTH EYES PRN (11:09)
[2021-04-08] MEDS ORDERED: Dextrose Gel 15 GM/37.5 ML TUBE PO PRN ×2 (11:09)
[2021-04-08] MEDS ORDERED: *HR* LORazepam 2 MG/ML VIAL IVP PRN (11:09)
[2021-04-08] MEDS ORDERED: *HR* Dextrose 50 % in Water (Vial) 50 ML VIAL IVP PRN (11:09)
[2021-04-08] MEDS: Cefepime HCl 2,000 MG in 0.9 % Sodium Chloride Mini Bag 100 ML IVPB SCH ×2 (16:24→23:50)
[2021-04-08 19:25] LABS: BUN/Creatinine Ratio 39 (6-26); Blood Urea Nitrogen 12 mg/dL (6-20); Calcium 8.7 mg/dL (8.6-10.3); Carbon Dioxide 23 mEq/L (23-29); Chloride 105 mEq/L (98-107); Glucose 125 mg/dL (70-105); Osmolality,Calculated 287 (280-300); Phosphorous 3.9 mg/dL (2.7-4.5); Sodium 138 mEq/L (136-145); eGFR For African Americans > 60 (> 60); eGFR For Non-African Americans > 60 (> 60)
[2021-04-09] MEDS: Insulin LISPRO 300 UNITS/3 ML VIAL SUBQ SCH ×6 (00:09→20:54)
[2021-04-09] MEDS: *HR* LORazepam Oral Conc 2 MG/ML GTUBE SCH ×6 (00:31→20:55)
[2021-04-09] MEDS: Ipratropium/Albuterol Neb 3 ML IH SCH ×6 (03:53→23:38)
[2021-04-09] MEDS: Metoclopramide 10 MG/10 ML UD.LIQ GTUBE SCH ×3 (04:13→20:55)
[2021-04-09] MEDS: Artificial Tears SOLN 15 ML BOTTLE BOTH EYES SCH ×5 (04:15→20:56)
[2021-04-09] MEDS: *HR* Heparin 5,000 UNIT/ML VIAL SQ SCH ×3 (04:53→20:55)
[2021-04-09 07:04] LABS: VBG Ionized Calcium 1.08 mmol/L (1.15-1.35)
[2021-04-09 07:07] LABS: Basophils % 0.3 %; Hematocrit 32.5 % (35.3-44.9); Hemoglobin 10.4 g/dL (11.5-15.4); Immature Granulocytes % 1.4 % (0-4); Lymphocytes # 1.6 K/mcL (0.6-4.6); Lymphocytes % 15.3 %; Mean Corpuscular Hemoglobin 25.2 pg (28.0-33.3); Mean Corpuscular Volume 78.9 fL (83.0-100.0); Monocytes # 0.6 K/mcL (0.0-1.3); Monocytes % 5.5 %; Neutrophils # 8.1 K/mcL (1.6-8.9); Platelet Count 351 K/mcL (140-400); Red Blood Count 4.12 M/mcL (3.82-4.97); Red Cell Distribution Width 19.7 % (11.5-14.5); Segmented Neutrophils % 77.5 %; White Blood Count 10.5 K/mcL (4.3-11.1)
[2021-04-09] MEDS: Cefepime HCl 2,000 MG in 0.9 % Sodium Chloride Mini Bag 100 ML IVPB SCH ×2 (09:58→17:18)
[2021-04-09] MEDS: Glycopyrrolate 1 MG TABLET PO SCH ×3 (09:59→20:55)
[2021-04-09] MEDS: Docusate Oral Soln 100 MG/10 ML UDC GTUBE SCH ×2 (09:59→20:55)
[2021-04-09] MEDS: Aspirin 81 MG TAB.CHEW PO SCH (09:59)
[2021-04-09] MEDS: carvediloL 6.25 MG TABLET GTUBE SCH ×2 (10:00→17:17)
[2021-04-09] MEDS: Chlorhexidine Rinse 15 ML MOUTHWASH MM SCH ×2 (10:00→20:55)
[2021-04-09] MEDS: Pantoprazole 40 MG VIAL IVP SCH (10:02)
[2021-04-10] MEDS: *HR* LORazepam Oral Conc 2 MG/ML GTUBE SCH ×7 (00:38→23:49)
[2021-04-10] MEDS: Artificial Tears SOLN 15 ML BOTTLE BOTH EYES SCH ×7 (00:38→23:50)
[2021-04-10] MEDS: Insulin LISPRO 300 UNITS/3 ML VIAL SUBQ SCH ×7 (00:39→23:26)
[2021-04-10] MEDS: Cefepime HCl 2,000 MG in 0.9 % Sodium Chloride Mini Bag 100 ML IVPB SCH ×2 (00:39→08:27)
[2021-04-10] MEDS: Acetaminophen 325 MG TABLET PO PRN ×2 (02:02→16:39)
[2021-04-10] MEDS: Ipratropium/Albuterol Neb 3 ML IH SCH ×6 (03:53→23:20)
[2021-04-10] MEDS: Metoclopramide 10 MG/10 ML UD.LIQ GTUBE SCH ×3 (04:01→20:08)
[2021-04-10] MEDS: *HR* Heparin 5,000 UNIT/ML VIAL SQ SCH ×3 (05:31→23:49)
[2021-04-10] MEDS: Chlorhexidine Rinse 15 ML MOUTHWASH MM SCH ×2 (08:27→20:08)
[2021-04-10] MEDS: Pantoprazole 40 MG VIAL IVP SCH (08:28)
[2021-04-10] MEDS: Docusate Oral Soln 100 MG/10 ML UDC GTUBE SCH ×2 (08:28→20:08)
[2021-04-10] MEDS: carvediloL 6.25 MG TABLET GTUBE SCH ×2 (08:29→16:39)
[2021-04-10] MEDS: Glycopyrrolate 1 MG TABLET PO SCH ×3 (08:29→20:08)
[2021-04-10] MEDS: Aspirin 81 MG TAB.CHEW PO SCH (08:29)
[2021-04-10] MEDS ORDERED: Ertapenem 1,000 MG in 0.9 % Sodium Chloride Mini Bag 100 ML IVPB SCH (10:00)
[2021-04-10] MEDS: *HR* FentaNYL PATCH 25 MCG PATCH TD SCH (10:47)
[2021-04-10 14:59] LABS: VBG Ionized Calcium 1.15 mmol/L (1.15-1.35)
[2021-04-10 14:59] LABS: Basophils % 0.2 %; Hematocrit 33.3 % (35.3-44.9); Hemoglobin 10.6 g/dL (11.5-15.4); Immature Granulocytes % 0.9 % (0-4); Lymphocytes # 1.4 K/mcL (0.6-4.6); Lymphocytes % 12.4 %; Mean Corpuscular HGB Conc 31.8 g/dL (31.6-35.5); Mean Corpuscular Hemoglobin 25.5 pg (28.0-33.3); Mean Platelet Volume 11.1 fL (9.4-12.4); Monocytes # 0.9 K/mcL (0.0-1.3); Monocytes % 7.8 %; Neutrophils # 8.8 K/mcL (1.6-8.9); Platelet Count 336 K/mcL (140-400); Red Blood Count 4.16 M/mcL (3.82-4.97); Red Cell Distribution Width 19.9 % (11.5-14.5); Segmented Neutrophils % 78.7 %; White Blood Count 11.2 K/mcL (4.3-11.1)
[2021-04-10 15:31] LABS: BUN/Creatinine Ratio 40 (6-26); Blood Urea Nitrogen 12 mg/dL (6-20); Calcium 8.6 mg/dL (8.6-10.3); Carbon Dioxide 26 mEq/L (23-29); Chloride 102 mEq/L (98-107); Glucose 158 mg/dL (70-105); Magnesium 1.9 mg/dL (1.6-2.6); Osmolality,Calculated 283 (280-300); Phosphorous 3.5 mg/dL (2.7-4.5); Sodium 135 mEq/L (136-145); eGFR For African Americans > 60 (> 60); eGFR For Non-African Americans > 60 (> 60)
[2021-04-10 16:26] LABS: ABG Base Excess 5 mEq/L (-2 to 3); ABG HCO3 28 mEq/L (21-27); ABG Oxygen Saturation 96 % (95-98); ABG PCO2 34 mmHg (35-45); ABG PH 7.53 pH Units (7.32-7.45); ABG PO2 72 mmHg (85-104); ABG TCO2 29 mEq/L (20-26); Blood Gas Modality ASSIST CONTROL; Blood Gas VT 400 cc
[2021-04-10] MEDS ORDERED: FentaNYL (PF) 1,000 MCG/100 ML IV.SOLN IVC SCH (16:30)
[2021-04-10] MEDS ORDERED: Isovue-370 500 ML BOTTLE IVP ONE ×2 (17:36→17:37)
[2021-04-10] MEDS: Ertapenem 1,000 MG in 0.9 % Sodium Chloride Mini Bag 100 ML IVPB SCH (17:48)
[2021-04-10] MEDS ORDERED: Isovue-370 500 ML BOTTLE PO ONE (17:53)
[2021-04-10] MEDS: FentaNYL (PF) 1,000 MCG/100 ML IV.SOLN IVC SCH (19:11)
[2021-04-10] MEDS: Vancomycin 1,250 MG/262.5 ML IV.SOLN IVPB SCH (19:32)
[2021-04-10 19:35] LABS: Amylase 39 Units/L (29-103); C-Reactive Protein 34 mg/L (Less than 10); Lactate Dehydrogenase 210 Units/L (140-271); Lipase 234 Units/L (11-82); Uric Acid < 1.5 mg/dL (2.3-7.6)
[2021-04-11] MEDS: *HR* LORazepam Oral Conc 2 MG/ML GTUBE SCH ×5 (03:33→20:23)
[2021-04-11] MEDS: Metoclopramide 10 MG/10 ML UD.LIQ GTUBE SCH ×3 (03:33→20:29)
[2021-04-11] MEDS: Artificial Tears SOLN 15 ML BOTTLE BOTH EYES SCH ×5 (03:34→20:28)
[2021-04-11] MEDS: Insulin LISPRO 300 UNITS/3 ML VIAL SUBQ SCH ×5 (03:38→20:30)
[2021-04-11] MEDS: Ipratropium/Albuterol Neb 3 ML IH SCH ×6 (03:58→23:35)
[2021-04-11] MEDS: *HR* Heparin 5,000 UNIT/ML VIAL SQ SCH ×3 (04:46→20:24)
[2021-04-11 05:03] LABS: BUN/Creatinine Ratio 41 (6-26); Basophils % 0.2 %; Blood Urea Nitrogen 13 mg/dL (6-20); Calcium 8.3 mg/dL (8.6-10.3); Carbon Dioxide 26 mEq/L (23-29); Chloride 101 mEq/L (98-107); Eosinophils % 0.2 %; Glucose 172 mg/dL (70-105); Hematocrit 31.4 % (35.3-44.9); Hemoglobin 9.8 g/dL (11.5-15.4); Immature Platelets 5.4 % (1.1-6.1); Lymphocytes # 1.6 K/mcL (0.6-4.6); Lymphocytes % 14.7 %; Magnesium 1.9 mg/dL (1.6-2.6); Mean Corpuscular HGB Conc 31.2 g/dL (31.6-35.5); Mean Corpuscular Hemoglobin 25.3 pg (28.0-33.3); Mean Corpuscular Volume 80.9 fL (83.0-100.0); Mean Platelet Volume 11.8 fL (9.4-12.4); Monocytes # 0.8 K/mcL (0.0-1.3); Monocytes % 6.9 %; Osmolality,Calculated 282 (280-300); Phosphorous 4.1 mg/dL (2.7-4.5); Platelet Count 269 K/mcL (140-400); Potassium 3.7 mEq/L (3.5-5.1); Red Blood Count 3.88 M/mcL (3.82-4.97); Red Cell Distribution Width 19.8 % (11.5-14.5); Sodium 134 mEq/L (136-145); White Blood Count 10.8 K/mcL (4.3-11.1); eGFR For African Americans > 60 (> 60); eGFR For Non-African Americans > 60 (> 60)
[2021-04-11 05:18] LABS: Neutrophils # 8.3 K/mcL (1.6-8.9)
[2021-04-11 05:19] LABS: Anisocytosis 1+ (Not Present); Platelet Estimate Normal (Normal)
[2021-04-11] MEDS: FentaNYL (PF) 1,000 MCG/100 ML IV.SOLN IVC SCH ×2 (07:19→21:09)
[2021-04-11] MEDS: Docusate Oral Soln 100 MG/10 ML UDC GTUBE SCH ×2 (08:38→20:23)
[2021-04-11] MEDS: Glycopyrrolate 1 MG TABLET PO SCH ×3 (08:38→20:23)
[2021-04-11] MEDS: Pantoprazole 40 MG VIAL IVP SCH (08:38)
[2021-04-11] MEDS: Aspirin 81 MG TAB.CHEW PO SCH (08:38)
[2021-04-11] MEDS: Chlorhexidine Rinse 15 ML MOUTHWASH MM SCH ×2 (08:44→20:27)
[2021-04-11] MEDS: carvediloL 6.25 MG TABLET GTUBE SCH ×2 (08:45→16:51)
[2021-04-11 09:20] LABS: VBG HCO3 28 mEq/L (21-27); VBG PCO2 36 mmHg (41-51); VBG PO2 193 mmHg (25-50)
[2021-04-11] MEDS: Vancomycin 1,250 MG/262.5 ML IV.SOLN IVPB SCH ×2 (10:48→20:24)
[2021-04-11 12:24] LABS: Adenovirus Not Detected (Not Detect); Bordetella Pertussis Not Detected (Not Detect); Chlamydophila pneumoniae Not Detected (Not Detect); Coronavirus 229E Not Detected (Not Detect); Coronavirus HKU1 Not Detected (Not Detect); Coronavirus NL63 Not Detected (Not Detect); Coronavirus OC43 Not Detected (Not Detect); Human Metapneumovirus Not Detected (Not Detect); Human Rhinovirus/Enterovirus Not Detected (Not Detect); Influenza A Subtype 2009 H1 Not Detected (Not Detect); Influenza B Not Detected (Not Detect); Mycoplasma pneumoniae Not Detected (Not Detect); Parainfluenza Virus 1 Not Detected (Not Detect); Parainfluenza Virus 2 Not Detected (Not Detect); Parainfluenza Virus 3 Not Detected (Not Detect); Parainfluenza Virus 4 Not Detected (Not Detect); Respiratory Syncytial Virus Not Detected (Not Detect); SARS-CoV-2 Not Detected (Not Detect)
[2021-04-11] MEDS: Ertapenem 1,000 MG in 0.9 % Sodium Chloride Mini Bag 100 ML IVPB SCH (18:19)
[2021-04-12] MEDS: Insulin LISPRO 300 UNITS/3 ML VIAL SUBQ SCH ×7 (00:44→23:53)
[2021-04-12] MEDS: Ipratropium/Albuterol Neb 3 ML IH SCH ×6 (03:25→23:36)
[2021-04-12] MEDS: Metoclopramide 10 MG/10 ML UD.LIQ GTUBE SCH ×3 (03:34→20:55)
[2021-04-12] MEDS: *HR* LORazepam Oral Conc 2 MG/ML GTUBE SCH ×7 (03:34→23:53)
[2021-04-12] MEDS: Artificial Tears SOLN 15 ML BOTTLE BOTH EYES SCH ×7 (03:35→23:53)
[2021-04-12] MEDS: *HR* Heparin 5,000 UNIT/ML VIAL SQ SCH ×3 (06:57→20:55)
[2021-04-12] MEDS: carvediloL 6.25 MG TABLET GTUBE SCH ×2 (08:47→16:09)
[2021-04-12] MEDS: Glycopyrrolate 1 MG TABLET PO SCH ×3 (08:47→20:56)
[2021-04-12] MEDS: Chlorhexidine Rinse 15 ML MOUTHWASH MM SCH ×2 (08:47→20:56)
[2021-04-12] MEDS: Docusate Oral Soln 100 MG/10 ML UDC GTUBE SCH ×2 (08:47→20:55)
[2021-04-12] MEDS: Pantoprazole 40 MG VIAL IVP SCH (08:48)
[2021-04-12] MEDS: Aspirin 81 MG TAB.CHEW PO SCH (08:48)
[2021-04-12] MEDS: Vancomycin 1,250 MG/262.5 ML IV.SOLN IVPB SCH (09:27)
[2021-04-12 10:55] LABS: Basophils % 0.3 %; Hematocrit 28.1 % (35.3-44.9); Hemoglobin 8.7 g/dL (11.5-15.4); Immature Granulocytes % 0.8 % (0-4); Lymphocytes # 1.2 K/mcL (0.6-4.6); Lymphocytes % 13.4 %; Mean Corpuscular Hemoglobin 25.4 pg (28.0-33.3); Mean Corpuscular Volume 82.2 fL (83.0-100.0); Mean Platelet Volume 11.9 fL (9.4-12.4); Monocytes # 0.7 K/mcL (0.0-1.3); Monocytes % 7.9 %; Neutrophils # 6.8 K/mcL (1.6-8.9); Platelet Count 257 K/mcL (140-400); Red Blood Count 3.42 M/mcL (3.82-4.97); Red Cell Distribution Width 18.9 % (11.5-14.5); Segmented Neutrophils % 77.6 %; White Blood Count 8.7 K/mcL (4.3-11.1)
[2021-04-12 11:18] LABS: BUN/Creatinine Ratio 38 (6-26); Blood Urea Nitrogen 12 mg/dL (6-20); Carbon Dioxide 30 mEq/L (23-29); Chloride 100 mEq/L (98-107); Glucose 146 mg/dL (70-105); Osmolality,Calculated 282 (280-300); Potassium 4.1 mEq/L (3.5-5.1); Sodium 135 mEq/L (136-145); eGFR For African Americans > 60 (> 60); eGFR For Non-African Americans > 60 (> 60)
[2021-04-12] MEDS: FentaNYL (PF) 1,000 MCG/100 ML IV.SOLN IVC SCH (12:07)
[2021-04-12] MEDS: Ertapenem 1,000 MG in 0.9 % Sodium Chloride Mini Bag 100 ML IVPB SCH (17:45)
[2021-04-12] MEDS ORDERED: Vancomycin 1,250 MG/262.5 ML IV.SOLN IVPB SCH (21:00)
[2021-04-13] MEDS: FentaNYL (PF) 1,000 MCG/100 ML IV.SOLN IVC SCH ×2 (00:26→15:37)
[2021-04-13] MEDS: Metoclopramide 10 MG/10 ML UD.LIQ GTUBE SCH ×2 (04:14→15:42)
[2021-04-13] MEDS: *HR* Heparin 5,000 UNIT/ML VIAL SQ SCH ×2 (04:14→15:42)
[2021-04-13] MEDS: *HR* LORazepam Oral Conc 2 MG/ML GTUBE SCH ×3 (04:14→15:41)
[2021-04-13] MEDS: Artificial Tears SOLN 15 ML BOTTLE BOTH EYES SCH ×3 (04:16→15:41)
[2021-04-13] MEDS: Insulin LISPRO 300 UNITS/3 ML VIAL SUBQ SCH ×3 (04:16→15:42)
[2021-04-13] MEDS: Ipratropium/Albuterol Neb 3 ML IH SCH ×4 (04:36→16:03)
[2021-04-13 04:54] LABS: Basophils % 0.1 %; Hematocrit 27.4 % (35.3-44.9); Hemoglobin 8.3 g/dL (11.5-15.4); Immature Granulocytes % 1.1 % (0-4); Lymphocytes # 1.6 K/mcL (0.6-4.6); Lymphocytes % 22.9 %; Mean Corpuscular HGB Conc 30.3 g/dL (31.6-35.5); Mean Corpuscular Hemoglobin 24.9 pg (28.0-33.3); Mean Corpuscular Volume 82.3 fL (83.0-100.0); Mean Platelet Volume 11.6 fL (9.4-12.4); Monocytes # 0.6 K/mcL (0.0-1.3); Monocytes % 7.9 %; Neutrophils # 4.9 K/mcL (1.6-8.9); Platelet Count 247 K/mcL (140-400); Red Blood Count 3.33 M/mcL (3.82-4.97); Red Cell Distribution Width 19.1 % (11.5-14.5); White Blood Count 7.2 K/mcL (4.3-11.1)
[2021-04-13 05:11] LABS: BUN/Creatinine Ratio 38 (6-26); Blood Urea Nitrogen 10 mg/dL (6-20); Calcium 8.3 mg/dL (8.6-10.3); Carbon Dioxide 30 mEq/L (23-29); Chloride 103 mEq/L (98-107); Glucose 179 mg/dL (70-105); Osmolality,Calculated 288 (280-300); Sodium 137 mEq/L (136-145); eGFR For African Americans > 60 (> 60); eGFR For Non-African Americans > 60 (> 60)
[2021-04-13] MEDS ORDERED: Vancomycin 1,750 MG/517.5 ML IV.SOLN IVPB SCH (09:00)
[2021-04-13] MEDS ORDERED: Vancomycin 1,500 MG/265 ML IV.SOLN IVPB SCH (09:00)
[2021-04-13] MEDS: Aspirin 81 MG TAB.CHEW PO SCH (09:22)
[2021-04-13] MEDS: Glycopyrrolate 1 MG TABLET PO SCH ×2 (09:22→15:42)
[2021-04-13] MEDS: carvediloL 6.25 MG TABLET GTUBE SCH (09:23)
[2021-04-13] MEDS: Chlorhexidine Rinse 15 ML MOUTHWASH MM SCH (09:24)
[2021-04-13] MEDS: Docusate Oral Soln 100 MG/10 ML UDC GTUBE SCH (09:24)
[2021-04-13] MEDS: Pantoprazole 40 MG VIAL IVP SCH (09:31)
[2021-04-13] MEDS: *HR* FentaNYL PATCH 25 MCG PATCH TD SCH (09:49)
[2021-04-13 11:36] VITALS: BP 105/65
== END 2021-04-13 16:30 | DRG 5 ==
LOC: EMEROOARM 22:46 → ICNU 03-24 03:23 → SUATTDRO 03-24 03:23 → ICNU 03-24 03:55 → 2NNU 04-08 18:47
PROVIDERS: ADMIT Internal Medicine; ATTEND General Practice